=== PATIENT | female | born 1995 | race Caucasian/White ===

== ENCOUNTER 2024-07-03 12:35 | Emergency (ER) | payer BC, SELFPAY ==
--- OUTSIDE RECORDS SUMMARY | 2024-06-06 11:00 | XMS_ITS ---
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 Has not had a cycle in 10 years. Cycle was only present for 1.5yr until it became absent for almost 10 years now. 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 Vital Signs Blood pressure systolic 80 mm Hg 06/07/19 25 Blood pressure diastolic 58 mm Hg 06/06/ 025 Height 65 in 06/06/2024 Weight 68.6 lbs 06/06/2024 BMI 11.41 kg/m2 06/06/2024 Encounters Encounter Location Date Provider Diagnosis [facility] [address] [place] [address] 06/06/2024 Mikayla Roa Malnutrition, unspecified type E46 [...] would recommend she also establish with a supervisor mails to assist with maintaining the (and even [...] would recommend she also establish with a supervisor mails to assist with maintaining the (and even helping achieve ). Will send a referral to [facility] Will have patient return after her labs to discuss further plan of care Mast cell activation syndrome Managed by other physicians Other Today's visit [facility] ed the ongoing management of multiple chronic, interconnected conditions significantly impacting the patient's quality of life and care complexity. Considerable time and cognitive effort were dedicated to addressing these conditions, discussing treatment options, coordinating care, patient counseling, and shared decision-making. 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 2. C/o; Patient [...] secondary to MCAS. This was diagnosed by [facility]. she needs a very strict diet [...] She was being seen by an outside medicare interviewer for her secondary amenorrhea. She had a [...] History: A nemia, Amenorrhea, Jaundice, Hypothyoidism. 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 [...] 2 TIMES A WEEK Transdermal , Taking Bixby Thyroid 60 MG Tablet TAKE 1 TABLET [...] * Images: Billing Information: * Visit Code: 05732 Office Visit, New Pt., Level 4. * Procedure Codes: 42237 BRIEF EMOTIONAL/BEHAV ASSMT. Modifiers: 59 * Sign off status: Completed true * Provider: Howard Roa, DO Date: 0 06/06/2024 Generated for Vibha doran/Stephen/Emiliana on: 0 07/03/2024 01:46 PM CDT History and Physical Notes * HPI [...]
--- OUTSIDE RECORDS SUMMARY | 2024-06-08 05:30 | XMS_ITS ---
Author Organization [facility] Address [address] [place] [address] Care Team Providers Care Pocket Builder Name Role Phone Diana Alcantar Primary Care Provider Kate Arora Unavailable [phone] Euwendy Mikayla Unavailable [phone] Results Component Value Reference Range Notes ESTRADIOL Reviewed date:06/09/2024 08:15:24 AM Interpretation: Performing Lab:[facility] [id number], Jimmy FairlySpttJY[address] Miguel Dutton Notes/Report: 0; 0; 0; 0 ESTRADIOL <15 Reference Range Follicular Phase: 19-144 Mid-Cycle: 64-357 Luteal Phase: 56-214 Postmenopausal: < or = 31 Reference range established on post-pubertal patient population. No pre-pubertal reference range established using this assay. For any patients for whom low Estradiol levels are anticipated (e.g. males, pre-pubertal children and hypogonadal/post-menopausal females), the [facility] Estradiol, Ultrasensitive, LCMSMS assay is recommended (order code 63633). Please note: patients being treated with the drug fulvestrant (Faslodex(R)) have demonstrated significant interference in immunoassay methods for estradiol measurement. The cross reactivity could lead to falsely elevated estradiol test results leading to an inappropriate clinical assessment of estrogen status. ProtoExchange order code 05558-Htycgferd, Ultrasensitive LC/MS/MS demonstrates negligible cross reactivity with fulvestrant. FSH Reviewed date:06/09/2024 08:15:24 AM Interpretation: Performing Lab:[facility] [id number], [facility] Clinic[facility]kiZC[address] Miguel Dutton Notes/Report: 0; 0; 0; 0 FSH <0.7 Reference Range Follicular Phase 2.5-10.2 Mid-cycle Peak 3.1-17.7 Luteal Phase 1.5- 9.1 Postmenopausal 23.0-116.3 LH Reviewed date:06/09/2024 08:15:24 AM Interpretation: Performing Lab:[facility] [id number], [facility] ClinicLoccZC[address] Miguel Dutton Notes/Report: 0; 0; 0; 0 LH <0.2 Reference Range Follicular Phase 1.9-12.5 Mid-Cycle Peak 8.7-76.3 Luteal Phase 0.5-16.9 Postmenopausal 10.0-54.7 PROLACTIN Reviewed date:06/09/2024 08:15:24 AM Interpretation: Performing Lab:[facility] [id number], [facility] Hospital[facility]dswRY[address] Miguel Dutton Notes/Report: 0; 0; 0; 0 PROLACTIN 8.5 Reference Range Females Non- 3.0-30.0 10.0-209.0 Postmenopausal 2.0-20.0 Testosterone, Total (IH) Reviewed date:06/14/2024 04:05:43 PM Interpretation: Performing Lab: Notes/Report: Access 2 ([id number]), Or[facility] - Lab REASON FOR VISIT Hormone Sendout + IH Testo Medications Medication SIG (Take, Route, Frequency, Duration) Notes Start Date End Date Status Lasix Active Estradiol 0.0375 MG/24HR APPLY 1 PATCH T OPICALLY TO THE SKIN 2 TIMES A WEEK Transdermal for 28 Days Active Progesterone Cream Active [place] Thyroid 60 MG TAKE 1 TABLET BY [facility] ON AN EMPTY STOMACH ORALLY ONCE A DAY 90 DAYS Oral for 90 Days Active Encounters Encounter Location Date Provider Diagnosis [facility] [address] [place] [address] [address] [place], [place] [id number] 06/08/2024 Mikayla Roa Amenorrhea, secondar y N91.1 Assessments Encounter Date Diagnosis (ICD Code) Assessment Notes Treatment Notes Treatment Clinical Notes Section Notes 06/08/2024 Amenorrhea, secondary (ICD-10 - N91.1) Plan Of Treatment Next Appt Details Provider Name:Mikayla Roa, 0 09/12/2024 02:00:00 PM, [address] [place], [address], Progress Notes * Jose David FORDEOB:1995 (28 yo F)Acc No.[id number]:06/08/2024 Patient: Madison RUIZ Provider: Howard Roa DO :1995 A ge:28 Y S ex:Female Date:06/08/2024 Address:[address] [place], [place] [id number] Pcp:Diana Alcantar Subjective: * Chief Complaints: * 1 . Hormone Sendout + IH Testo. * Medical History: * Medications: T aking Lasix , Taking Progesterone , Notes to Pharmacist: Cream, Taking Estradiol 0.0375 MG/24HR Patch Twice Weekly APPLY 1 PATCH TOPICALLY TO THE SKIN 2 TIMES A WEEK Transdermal , Taking [place] Thyroid 60 MG Tablet TAKE 1 TABLET [...] 2670 ASSAY OF ESTRADIOL, Modifiers: 90 , 34026 GONADOTROPIN (FSH), Modifiers: 90 , 38385 GONADOTROPIN (LH), Modifiers: 90 , 79934 ASSAY OF PROLACTIN, Modifiers: 90 , 49115 ASSAY OF TOTAL TESTOSTERONE - IH, 77345 VENIPUNCT, ROUTINE* * Images: Billing Information: * Visit Code: * Procedure Codes: 94506 ASSAY OF ESTRADIOL. Modifiers: 90 90666 GONADOTROPIN (FSH). Modifiers: 90 86538 GONADOTROPIN (LH). Modifiers: 90 52535 ASSAY OF PROLACTIN. Modifiers: 90 50016 ASSAY OF TOTAL TESTOSTERONE - IH. 42477 VENIPUNCT, ROUTINE*. * Sign off status: Completed Addendum: * true * Provider: Howard Roa, DO Date: 06/08/2024 Generated for Vibha doran/Farupeshg/eTransmitting on: 07/03/2024 01:46 PM CDT
--- OUTSIDE RECORDS SUMMARY | 2024-06-13 06:15 | XMS_ITS ---
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 Medications Medication SIG (Take, Route, Frequency, Duration) Notes Start Date End Date Status Progesterone Cream Active Estradiol 0.1 MG/24HR 1 patch to skin Tr ansdermal Two times a Week for 90 days 06/13/2024 Active [place] Thyroid 60 MG TAKE 1 TABLET BY [facility] ON AN EMPTY STOMACH ORALLY ONCE A DAY 90 DAYS Oral for 90 Days Active Estradiol 0.0375 MG/24HR APPLY 1 PATCH T OPICALLY TO THE SKIN 2 TIMES A WEEK Transdermal for 28 Days Active Lasix Active Social History Tobacco Use: Social History Observation Description Date Details (start date - stop date) Never Smoker NA - NA Tobacco Control (Standard) Question Answer Notes Tobacco use: Nonsmoker Problems Problem Type SNOMED Code ICD Code Onset Dates Problem Status W/U Status Risk Notes Problem Hypogonadotropic hypogonadism syndrome, 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 Vital Signs Blood pressure systolic 80 mm Hg 06/14/19 25 Blood pressure diastolic 48 mm Hg 025 Height 65 in 06/13/2024 Weight 70.4 lbs 06/13/2024 BMI 11.71 kg/m2 06/13/2024 Encounters Encounter Location Date Provider Diagnosis [facility] [address] [place] [address] 06/13/2024 Mikayla Roa Hypogonadotropic hypogonadism syndrome, female E23.0 ; Secondary amenorrhea N91.1 and Vaginal dryness N89.8 Assessments Encounter Date Diagnosis (ICD Code) Assessment Notes Treatment Notes Treatment Clinical Notes Section Notes 06/13/2024 Hypogonadotropic hypogonadism syndrome, female (ICD-10 - E23.0) Pt currently is on a estradiol patch 0.0375mg 2x/weekly, and topical progesterone. She did not tolerate oral progesterone well which she suspects is secondary to a soy allergy. We discussed the need to be on full dose replacement, which is estradiol 0.1mg 2x/week. This has been sent to her pharmacy. We also reviewed the importance of oral progesterone vs transdermal, and we are able to compound progesterone in olive oil at [facility]. She is excited to try this and we are hopeful this formulation will be OK with her MCAS. Will plan to do estradiol patch continuously, and progesterone 14 days of the month -Estrogen will be particularly important for her bone health. We should repeat this screening in 6 months or so and compare to her prior test -Will have patient follow up in 3 months. Also reviewed that if ANDRIY has a different plan for the patient I would defer management to them 06/13/2024 Secondary amenorrhea (ICD-10 - N91.1) See above plan 06/13/2024 Vaginal dryness (ICD-10 - N89.8) Offered vaginal estrogen or Replens therapy. She would like to hold off on vaginal estrogen for now - we are both hopeful that the patch will provide some improvement in dryness 06/13/2024 Other Today's visit involved the ongoing management of multiple chronic, interconnected conditions significantly impacting the patient's quality of life and care complexity. Considerable time and cognitive effort were dedicated to addressing these conditions, discussing treatment options, coordinating care, patient counseling, and shared decision-making. 30 minutes spent on chart review, in face to face time with patient, documentation of above and coordination of care. Plan Of Treatment Medication Medication Name Sig Start Date Stop Date Notes Estradiol 0.1 MG/24HR 1 patch to skin Tr ansdermal Two times a Week for 90 days 06/13/2024 Treatment Notes Assessment Notes Hypogonadotropic hypogonadis m syndrome, female Pt currently is on a estradiol patch 0.0375mg 2x/weekly, and topical progesterone. She did not tolerate oral progesterone well which she suspects is secondary to a soy allergy. We discussed the need to be on full dose replacement, which is estradiol 0.1mg 2x/week. This has been sent to her pharmacy. We also reviewed the importance of oral progesterone vs transdermal, and we are able to compound progesterone in olive oil at [facility]. She is excited to try this and we are hopeful this formulation will be OK with her MCAS. Will plan to do estradiol patch continuously, and progesterone 14 days of the month -Estrogen will be particularly important for her bone health. We should repeat this screening in 6 months or so and compare to her prior test -Will have patient follow up in 3 months. Also reviewed that if [facility]RIY has a different plan for the patient I would defer management to them Secondary amenorrhea See above plan Vaginal dryness Offered vaginal estr ogen or Replens therapy. She would like to hold off on vaginal estrogen for now - we are both hopeful that the patch will provide some improvement in dryness Other Today's visit involved the ongoing management of multiple chronic, interconnected conditions significantly impacting the patient's quality of life and care complexity. Considerable time and cognitive effort were dedicated to addressing these conditions, discussing treatment options, coordinating care, patient counseling, and shared decision-making. 30 minutes spent on chart review, in face to face time with patient, documentation of above and coordination of care. Next Appt Details Provider Name:Mikayla Roa, 0 09/12/2024 02:00:00 PM, [address] [place], [address], Progress Notes * Jose David FORDEOB:1995 (28 yo F)Acc No.[id number]:06/13/2024 Progress Notes Patient: Howard Madison LOPEZ Provider: Howard Roa DO :1995 A ge:28 Y S ex:Female Date:06/13/2024 Address:[address] Pcp:Diana Alcantar Subjective: * Chief Complaints: * 1 . FU - labs. 2. Lmp 08/2014. 3. Concerns none. 4. 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 * HPI: * General: Madison is here for F/U of amenorrhea. Labs: E <15 FSH <0.7 LH < 0.2 Labs consistent with hypogonadotropic hypogonadism. Suspect secondary to severe malnutrition from MCAS Patient was referred to ANDRIY last week due to desires for fertility. I was happily surprised that she was actually able to schedule an appointment next week. ANDRIY will be a very helpful resource in managing this patients endocrinopathy and fertility desires The patient states she has had bone density testing within the last two years and has been doing weight bearing exercise to help with this (no medications were indicated). She also had Vit D recently tested which is 32 so she has started a Vit D supplement. Pt does also report vaginal dryness causing dyspareunia. * Medical History: A nemia, Amenorrhea, Jaundice, Hypothyoidism. 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 [...] 2 TIMES A WEEK Transdermal , Taking [place] Thyroid 60 MG Tablet TAKE 1 TABLET BY MOUTH ON AN EMPTY STOMACH ORALLY ONCE A DAY 90 DAYS Oral , Medication List reviewed and reconciled with the patient * Allergies: N .K.D.A. Objective: * Vitals: H t: 65 in, Wt:70.4lbs, BP:80/48mm Hg, BMI:11.71Index. * Examination: * General Examination: GENERAL APPEARANCE: i n no acute distress, alert, well hydrated, in no distress. Assessment: * Assessment: 1. S econdary amenorrhea - N91.1 2 . H ypogonadotropic hypogonadism syndrome, female - E23.0 (Primary) 3 . V aginal dryness - N89.8 Plan: * Treatment: 2. S econdary amenorrhea Notes: See above plan 3. V aginal dryness Notes: Offered vaginal estrogen or Replens therapy. She would like to hold off on vaginal estrogen for now - we are both hopeful that the patch will provide some improvement in dryness 4. O thers Notes: Today's visit involved the ongoing management of multiple chronic, interconnected conditions significantly impacting the patient's quality of life and care complexity. Considerable time and cognitive effort were dedicated to addressing these conditions, discussing treatment options, coordinating care, patient counseling, and shared decision-making. 30 minutes spent on chart review, in face to face time with patient, documentation of above and coordination of care. * Preventive Medicine: YOUR PREVENTIVE WELLNESS PLAN: D epression Screening: Screening for depression was last done on: 06/06/2024 * Images: Billing Information: * Visit Code: 24155 Office Visit, Est Pt., Level 4. * Procedure Codes: * Sign off status: Completed true * Provider: Howard Roa DO Date: 06/13/2024 Generated for Vibha doran/Stephen/Emiliana on: 07/03/2024 01:46 PM CDT History and Physical Notes * Examination Category Sub-Category Detail Notes Category Not es *General Examination GENERAL APPEARANCE: in no a cute distress, alert, well hydrated, in no distress
--- OUTSIDE RECORDS SUMMARY | 2024-06-14 09:00 | XMS_ITS | Encounter Summary ---
Author Organization [facility] Address [address] [place] [address] Care Team Providers Care Patternmaker Grader Name Role Phone Juliana Churchill MD Unavailable [phone] Diana Alcantar NP Primary Care Provider Juliana Churchill MD Unavailable Roosevelt Carrasco MD Unavailable [phone] Reason for Visit * Reason Comments Oncology Clinic Visit Anemia Encounter Details Date Type Department Care Team (Late st Contact Info) Description 06/14/2024 9:00 AM CDT Oncology Visit [facility] [address] [facility] [address] [place] [address] Juliana Churchill MD [address] [facility] [place] [id number] Anemia in other chronic diseases classified elsewhere (Primary Dx); Neutropenia, unspecified type; Thrombocytopenia Social History Tobacco Use Types Packs/Day Years Used Date Smoking Tobacco: Never Smokeless Tobacco: Never Alcohol Use Standard Drinks/Week Comments No 0 (1 standard drink = 0.6 oz pur e alcohol) PHQ-2 Answer Date Recorded PHQ-2 Score 0 06/14/2024 Adolescent Education Answer Date Record ed Getting School Help Needed Not on file 11/08 Comments No Sex and Gender Information Value Date Recorded Sex Assigned at Not on file Legal Sex Female 3:31 AM [employer] Gender Identity Not on file Sexual Orientation Not on file documented as of this encounter Last Filed Vital Signs Vital Sign Reading Time Taken Comments Blood Pressure 102/57 06/14/2024 8:44 AM CDT Pulse 63 06/14/2024 8:44 AM CDT Temperature 36.9 C (98.4 F) 06/14/2024 8:44 AM CDT Respiratory Rate 16 06/14/2024 8:44 AM CDT Oxygen Saturation 100% 06/14/2024 8:44 AM CDT Inhaled Oxygen Concentration - - Weight 31.2 kg (68 lb 12.8 oz) 06/14/2024 8:44 A M CDT Height 165.1 cm (5' 5) 06/14/2024 8:44 AM CDT Body Mass Index 11.45 06/14/2024 8:44 AM CDT documented in this encounter Progress Notes * Slick Peraza, VALE - 06/14/2024 9:00 AM CDT Oncology Rooming Note June 14, 2024 9:09 AM Madison Forde is a 28 year old female who presents for: Chief Complaint Patient presents with Oncology Clinic Visit Initial Vitals: BP 102/57 (Patient Position: Sitting) Pulse 63 Temp 98.4 ??F (36.9 ??C) (Oral) Resp 16 Ht 1.651 m (5' 5) Wt 31.2 kg (68 lb 12.8 oz) SpO2 100% BMI 11.45 kg/m?? Estimatedbody mass index is 11.45 kg/m?? as calculated from the following: Height as of this encounter: 1.651 m (5' 5). Weight as of this encounter: 31.2 kg (68 lb 12.8 oz). Body surface area is 1.2 meters squared. Data Unavailable Comment: 1-5 total body No LMP recorded. (Menstrual status: UNKNOWN). Allergies reviewed: Yes Medications reviewed: Yes Medications: Medication refills not needed today. Pharmacy name entered into EPIC: [id number] IN [facility] - [place], [place] - [address] [id number] - [place] [address] [id number] - [place], [place] [address] [facility] [address] [facility][id number] [place], [place] - [address] AT [place] [address] & [facility] Frailty Screening: Is the patient here for a new oncology consult visit in cancer care? 2. No PHQ9: Did this patient require a PHQ9?: No Clinical concerns:Anemia Slick Peraza LPN * Juliana Churchill MD - 06/14/2024 9:00 AM CDT [facility] Hematology and Oncology Progress Note Patient: Madison Forde Date of Service: June 14, 2024 Reason for Visit Chief Complaint Patient presents with Oncology Clinic Visit Anemia Assessment and Plan Cancer Staging No matching staging information was found for the patient. ECOG Performance 0 - Independent Pain #. Mild neutropenia, persistent #. Mild macrocytic anemia, resolved #. Mild thrombocytopenia, resolved #. History of mast cell activation syndrome I reviewed her most recent labs completed about a month ago. - The current blood test results indicate that there is no evidence of a blood disease, as the hemoglobin and platelet counts have normalized though she has mild persistent macrocytosis with MCV of 105. - The white cell count is slightly low at 2.2, with a neutrophil count of 0.8, but this is not considered dangerously low. - The vitamin B12 and folate levels are within normal ranges, and there is no concern for toxicity.Iron study showed adequate iron with iron saturation 42% and ferritin 105. - The overall assessment suggests that the current condition is stable, and there is no indication of needing bone marrow biopsy at this point. Plan - Monitor blood counts annually to ensure stability, particularly the neutrophil count. - Establish care with a primary care provider to maintain regular health monitoring. - Consult a workers' compensation claims supervisor if there are any concerns or questions regarding blood counts. She is encouraged to call me with any concerns related to her blood counts. Encounter Diagnoses: Problem List Items Addressed This Visit Anemia - Primary Other Visit Diagnoses Neutropenia, unspecified type Thrombocytopenia CC: Diana Alcantar, BARREL RAISER HELPER History of Present Illness Ms. Madison Forde presented today accompanied by her for follow-up iron deficiency anemia and pancytopenia. Madison reports that not much has changed since her last visit a year ago regarding her gastrointestinal issues. She is currently working on stabilizing her condition. She mentions that her eating habits and nutritional intake are satisfactory, with no significant changes in how much she can eat orher caloric intake. Madison notes that salcido are challenging for her, possibly due to mood changes or mast cell reactivation related to the weather. She described full body pain rated 1-5 out of 10. She previously lived in [place], which she suggests might have contributed to some of her health improvements. She does not report any significant changes in her condition over the past month. Madison is not taking any vitamin B12 supplements. She has not experienced frequent infections such as pneumonia or true sinus infections, which could be concerning given her slightly low white cell count. She expresses satisfaction with her current blood work results and does not plan to recheck labs unless there are changes in her condition. Review of systems Apart from describing in HPI, the remainder of comprehensive ROS was negative. Past History Past Medical History: Diagnosis Date Allergic state Idiopathic mast cell activation syndrome Severe malnutrition Strep throat Past Surgical History: Procedure Laterality Date IR NG TUBE PLACEMENT REQ RAD & FLUORO 09/09/2017 IR PICC PLACEMENT > 5 YRS OF AGE 1112/19/2017 PICC INSERTION Right 06/17/2016 5fr DL BioFlo PICC, 34cm (1cm external) in the R basilic vein w/ tip in the SVC RA junction. PICC INSERTION Right 08/12/2016 5f DL BioFlo PICC, 34cm (1cm external) in the R lateral brachial vein w/ tip in the low SVC. TONSILLECTOMY & ADENOIDECTOMY age 12 Physical Exam BP 102/57 (Patient Position: Sitting) Pulse 63 Temp 98.4 ??F (36.9 ??C) (Oral) Resp 16 Ht 1.651 m (5' 5) Wt 31.2 kg (68 lb 12.8 oz) SpO2 100% BMI 11.45 kg/m?? General: alert, awake, not in acute distress, Introvale. HEENT: Head: Normal, normocephalic, atraumatic. Eye: Normal external eye, conjunctiva, lids cornea, CATHIE. Nose: Normal external nose, mucus membranes and septum. Extremities: normal strength, tone, and muscle mass Skin: normal. no rash or abnormalities CARBONATING STONE CLEANER: non focal. Lab Results No results found for this or any previous visit (from the past 240 hours). Imaging No results found. The longitudinal plan of care for the diagnosis(es)/condition(s) as documented were addressed during this visit. Due to the added complexity in care, I will continue to support Madison in the subsequent management and with ongoing continuity of care. 30 minutes spent by me on the date of the encounter doing chart review, history and exam, documentation and further activities as noted above. Consent was obtained from the patient to use an AI documentation tool in the creation of this note. Signed by: Juliana Churchill MD documented in this encounter Plan of Treatment Not on file documented as of this encounter Visit Diagnoses Diagnosis Anemia in other chronic diseases classified elsewhere- Primary Neutropenia, unspecified type Thrombocytopenia Thrombocytopenia, unspecified documented in this encounter Care Teams Patternmaker Grader Relationship Specialty Start Date End Date Diana Alcantar NP [facility] [address] [place] [address] PCP - General 06/18/23 Juliana Churchill MD [address] [place] [address] [place] [id number] Hematology 05/20/23 Juliana Churchill MD [address] [place] [address] [place] [id number] Assigned Cancer Care Provider 06/30/23 Roosevelt Carrasco MD [address] [facility] [address] [place], [place] [address] Otolaryngology 07/20/23 documented as of this encounter
--- OUTSIDE RECORDS SUMMARY | 2024-06-25 16:08 | XMS_ITS | Encounter Summary ---
Author Organization [facility] Address [address] [place] [id number] Care Team Providers Care Luggage Liner Name Role Phone Juliana Churchill MD Unavailable [phone] Diana Alcantar NP Primary Care Provider Juliana Churchill MD Unavailable [phone] Roosevelt Carrasco MD Unavailable [phone] Reason for Visit * Reason Comments Chest Pain Encounter Details Date Type Department Care Team (Late st Contact Info) Description 06/25/2024 4:08 PM CDT - 06/25/2024 7:55 PM CDT Emergency [facility] Emergency Dept [address] [place] [address] Umair Ruiz MD [facility] [address] [place] [address] Atypical chest pain; Hypokalemia; Nausea and vomiting, unspecified vomiting type Discharge Disposition: Home or Self Care Social History Tobacco Use Types Packs/Day Years [...] on file Legal Sex 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 Gender Identity Not on file Sexual Orientation Not on file documented as of this encounter Last Filed Vital Signs Vital Sign Reading Time Taken Comments Blood Pressure 97/62 06/25/2024 7:50 PM CDT Pulse 44 06/25/2024 7:50 PM CDT Temperature 37.3 C (99.1 F) 06/25/2024 3:49 PM CDT Respiratory Rate 18 06/25/2024 3:49 PM CDT Oxygen Saturation 100% 06/25/2024 7:50 PM CDT Inhaled Oxygen Concentration - - Weight 31.3 kg (69 lb 0.1 oz) 06/25/2024 3:49 PM CDT Height 165.1 cm (5' 5) 06/25/2024 3:49 PM CDT Body Mass Index 11.48 06/25/2024 3:49 PM CDT documented in this encounter Discharge Instructions * Discharge Instructions* Umair Ruiz MD - 06/25/2024 7:19 PM CDT Discharge Instructions Chest Pain You have been seen today for chest pain or discomfort. At this time, your provider has found no signs that your chest pain is due to a serious or life- threatening condition, (or you have declined more testing and/or admission to the hospital). However, sometimes there is a serious problem that doesnot show up right away. Your evaluation today may not be complete and you may need further testing and evaluation. Generally, every Emergency Department visit should have a follow-up clinic visit with either a primary or a specialty clinic/provider. Please follow-up as instructed by your emergency provider today. Return to the Emergency Department if: Your chest pain changes, gets worse, starts to happen more often, or comes with less activity. You are newly short of breath. You get very weak or tired. You pass out or faint. You have any new symptoms, like fever, cough, numb legs, or you cough up blood. You have anything else that worries you. Until you follow-up with your regular provider, please do the following: Take one aspirin daily unless you have an allergy or are told not to by your provider. If a stress test appointment has been made, go to the appointment. If you have questions, contact your regular provider. Follow-up with your regular provider/clinic as directed; this is very important. If you were given a prescription for medicine here today, be sure to read all of the information (including the package insert) that comes with your prescription. This will include important information about the medicine, its side effects, and any warnings that you need to know about. The pharmacist who fills the prescription can provide more information and answer questions you may have about the medicine. If you have questions or concerns that the pharmacist cannot address, please call or return to the Emergency Department. Remember that you can always come back to the Emergency Department if you are not able to see your regular provider in the amount of time listed above, if you get any new symptoms, or if there is anything that worries you. * Attachments The following attachments cannot be sent through Care Everywhere. * Hypokalemia (Slovenian) * Nausea and Vomiting (Slovenian) documented in this encounter Medications at Time of Discharge ondansetron (ZOFRAN ODT) 4 MG ODT tab Take 1 tablet (4 mg) by mouth every 6 hours as needed for nausea or vomiting. 12 tablet 06/25/2024 potassium chloride cherry ER (KLOR-CON M20) 20 MEQ CR tablet Take 2 tablets (40 mEq) by mouth daily. 8 tablet 06/25/2024 ARMOUR THYROID 30 MG tablet 11/13/2022 EPINEPHrine 0.3 MG/0.3ML injectionIndicat ions:Idiopathic mast cell activation syndrome Inject 0.3 mLs (0.3 mg) into the muscle as needed for anaphylaxis 0.6 mL 3 07/06/2016 documented as of this encounter ED Notes * Clair Cadet RN - 06/25/2024 7:21 PM CDT Bed: IN06 Expected date: Expected time: Means of arrival: Comments: 3rd Triage Nurse * Umair Ruiz MD - 06/25/2024 4:08 PM CDT Emergency Department Note History of Present Illness Chief Complaint Chest Pain MIRNA Forde is a 28 year old female here for evaluation of chest pain. The patient came to the ED from urgent care where she was seen for both nausea and vomiting as well as chest pain. She reports onset of intermittent shortness of breath and left-sided chest tightness 1 week ago. She describes her chest tightness as her left chest is shrinking. The chest tightness is accompanied by mild left chest pain. 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 The chest tightness also gets worse while she is drinking fluids. She is a pretty active person and goes for 20-25 minute walks everyday, but the tightness does not come during the walk or right after. The pain does not move anywhere. When she was seen at , they also noticed heart rate irregularities. She denies sweating that occurs alongside the chest pain. She has never had these symptoms before. She also reports chronic nausea and vomiting that started a long time ago. She has recently noticedweight loss, which is part of the reason she went to the urgent care. She reports that her PCP is aware of the issues and suspects it has something to do with allergies. She is not taking any medication for the nausea and vomiting. She also reports mild generalized abdominal pain that has been going on for a long time. She denies sweating, fever, and unilateral symptoms other than the chest pain.She has chronic edema, but denies any recent changes. She does not have history of blood clots. Shedenies history of smoking, other heart issues, diabetes, hypertension, hyperlipidemia, and family history of cardiac disease. She has not concern for currently. She started estrogen patchesone week ago. Independent Historian None Review of External Notes None Past Medical History Medical History and Problem List Idiopathic mast cell activation syndrome Anorexia nervosa Hypothyroid Cachexia Liver failure Central line-associated bloodstream infection Pressure injury of contiguous region involving right buttock Medications Estradiol patch Surgical History Tonsillectomy and adenoidectomy Physical Exam Patient Vitals for the past 24 hrs: BP Temp Temp src Pulse Resp SpO2 Height Weight 06/25/24 1950 97/62 -- -- (!) 44 -- 100 % -- -- 06/25/24 1549 100/69 99.1 ??F (37.3 ??C) Temporal 56 18 100 % 1.651 m (5' 5) 31.3 kg (69 lb 0.1 oz) Physical Exam General: Alert, no acute distress; cachectic appearing. HEENT: Moist mucous membranes. Conjunctiva normal. CV: Bradycardic, regular rhythm, no m/r/g, skin warm and well perfused Pulm: CTAB, no wheezes/ronchi/rales. No acute distress, breathing comfortably GI: Soft, nontender, nondistended. No rebound or guarding. MSK: Moving all extremities. No focal areas of edema, erythema Skin: WWP, no rashes, no lower extremity edema, skin color normal, no diaphoresis Psych: Well-appearing, normal affect, regular speech Diagnostics Lab Results Labs Ordered and Resulted from Time of ED Arrival to Time of ED Departure COMPREHENSIVE METABOLIC PANEL - Abnormal Result Value Sodium 142 Potassium 2.8 (*) Carbon Dioxide (CO2) 29 Anion Gap 10 Urea Nitrogen 2.7 (*) Creatinine 0.90 GFR Estimate 89 Calcium 8.8 Chloride 103 Glucose 82 Alkaline Phosphatase 53 AST 30 ALT 38 Protein Total 5.3 (*) Albumin 3.7 Bilirubin Total 0.4 CBC WITH PLATELETS AND DIFFERENTIAL - Abnormal WBC Count 2.7 (*) RBC Count 3.52 (*) Hemoglobin 11.9 Hematocrit 34.1 (*) MCV 97 MCH 33.8 (*) MCHC 34.9 RDW 12.7 Platelet Count 246 % Neutrophils 42 % Lymphocytes 47 % Monocytes 9 % Eosinophils 1 % Basophils 1 % Immature Granulocytes 0 NRBCs per 100 WBC 0 Absolute Neutrophils 1.2 (*) Absolute Lymphocytes 1.3 Absolute Monocytes 0.2 Absolute Eosinophils 0.0 Absolute Basophils 0.0 Absolute Immature Granulocytes 0.0 Absolute NRBCs 0.0 TROPONIN T, HIGH SENSITIVITY - Normal Troponin T, High Sensitivity 10 LIPASE - Normal Lipase 32 D DIMER QUANTITATIVE - Normal D-Dimer Quantitative <0.27 MAGNESIUM - Normal Magnesium 2.3 TROPONIN T, HIGH SENSITIVITY - Normal Troponin T, High Sensitivity 8 Imaging Chest XR, PA & LAT Final Result IMPRESSION: PA and lateral views of the chest were obtained. Cardiomediastinal silhouette is withinnormal limits. No suspicious focal pulmonary opacities. No significant pleural effusion or pneumothorax. Few gas-distended bowel loops in the visualized left upper quadrant. EKG ECG results from 06/25/24 EKG 12-lead, tracing only Value Systolic Blood Pressure Diastolic Blood Pressure Ventricular Rate 49 Atrial Rate 49 AL Interval 116 QRS Duration 92 QT 466 QTc 420 P Lockhart 78 R AXIS 100 T Lockhart 68 Interpretation ECG Sinus bradycardia Rightward axis Nonspecific ST and T wave abnormality Abnormal ECG No significant change from previous EKG on 01/15/21 Read by me at 1600 Independent Interpretation CXR: No pneumothorax, infiltrate, pleural effusion, pulmonary edema, cardiomegaly, or mediastinal widening. ED Course Medications Administered Medications ibuprofen (ADVIL/MOTRIN) tablet 600 mg (600 mg Oral $Given 06/25/24 1637) sodium chloride 0.9% BOLUS 1,000 mL (0 mLs Intravenous Stopped 06/25/24 1855) potassium chloride (KLOR-CON) Packet 40 mEq (40 mEq Oral Not Given 06/25/24 1931) potassium chloride cherry ER (KLOR-CON M20) CR tablet 40 mEq (40 mEq Oral $Given 06/25/24 1950) Procedures Procedures Discussion of Management None ED Course ED Course as of 06/26/24 0026 TueJune 25, 2024 1605 I obtained history and examined the patient as noted above. 194 I obtained history and examined the patient as noted above. Additional Documentation None Medical Decision Making / Diagnosis [facility] Diagnoses: None MIPS None MDM [place] Mary Forde is a 28 year old female with reported history of idiopathic mast cell activation syndrome, anorexia presenting to the emergency department for evaluation of chest pain. Patient reports ongoing nausea/vomiting that is. Today, she was seen at urgent care and referred to the emergency department given complaints of chest pain. See above for the details in the HPI and exam. She isnoted to be bradycardic, afebrile and hemodynamically stable. She does appear cachectic but overallwell appearing which seems consistent with her prior evaluations. She does have a history of bradycardia and her EKG shows sinus bradycardia without any acute ischemic appearing changes or signs of malignant dysrhythmia or worrisome interval abnormalities or pericarditis. High- sensitivity troponin and delta troponin are normal making ACS unlikely. Furthermore, patient's heart score is low. She islow risk for PE, D-dimer is negative making VTE unlikely. The rest of her basic lab studies show mild hypokalemia which was orally replaced, otherwise normal magnesium; slight leukopenia which seems to be stable from previous evaluations, nonspecific. Chest x-ray obtained shows no acute abnormalities. Doubt aortic dissection based on history and exam. Unclear cause for patient's chest pain but given her overall reassuring workup here, with reasonable clinical certainty I do feel that she is safe to discharge home to follow-up with her primary care doctor regarding her ER visit today and she is comfortable with this plan. She will be discharged with antiemetics, potassium supplementation. Recommend follow-up with PCP next week to repeat chemistries. Discussed the signs/symptoms that should prompt urgent return to the emergency department and she expressed understanding. All questions were answered prior to discharge. Disposition The patient was discharged. Diagnosis ICD-10-CM 1. Atypical chest pain R07.89 2. Hypokalemia E87.6 3. Nausea and vomiting, unspecified vomiting type R11.2 Discharge Medications Discharge Medication List as of 06/25/2024 7:51 PM START taking these medications Details ondansetron (ZOFRAN ODT) 4 MG ODT tab Take 1 tablet (4 mg) by mouth every 6 hours as needed for nausea or vomiting., Disp-12 tablet, R-0, Local Print potassium chloride cherry ER (KLOR-CON M20) 20 MEQ CR tablet Take 2 tablets (40 mEq) by mouth daily.,Disp-8 tablet, R-0, Local Print Scribe Disclosure: Harry Hankins, am serving as a scribe at 6:13 PM on 06/25/2024 to document services personally performed by Umair Ruiz MD based on my observations and the provider's statements to me. Umair Ruiz MD 06/26/24 0026 * Dixie Riley RN - 06/25/2024 3:51 PM CDT Pt was seen in clinic today and sent to the ED. Pt states that she has had n/v for the past month and has some chest tightness. Pt had an EKG at the clinic that was abnormal but pt is unsure why. Shestates it was low and when he listened it was not normal he heard extra beats. Triage Assessment (Adult) Row Name 06/25/24 1551 Triage Assessment Airway WDL WDL Respiratory WDL Respiratory WDL WDL Cardiac WDL Cardiac WDL X;chest pain documented in this encounter Plan of Treatment Not on file documented as of this encounter Procedures Procedure Name Priority Date/Time Associated Diagnosis Comments TROPONIN T, HIGH SENSITIVITY STAT 06/25/2024 6:22 PM CDT XR CHEST 2 VIEWS STAT 06/25/2024 5:32 PM CDT EXTRA TUBE STAT 06/25/2024 4:30 PM CDT EXTRA RED TOP TUBE STAT 06/25/2024 4: 30 PM CDT CBC WITH PLATELETS AND DIFFERENTIAL STAT 06/25/2024 4:30 PM CDT TROPONIN T, HIGH SENSITIVITY STAT 06/25/2024 4:30 PM CDT CBC WITH PLATELETS & DIFFERENTIAL STAT 06/25/2024 4:30 PM CDT MAGNESIUM STAT 06/25/2024 4:30 PM CDT LIPASE STAT 06/25/2024 4:30 PM CDT D DIMER QUANTITATIVE STAT 06/25/2024 4:30 PM CDT COMPREHENSIVE METABOLIC PANEL STAT 06/25/2024 4:30 PM CDT EKG 12-LEAD, TRACING ONLY STAT 06/25/2024 3:57 PM CDT documented in this encounter Results * Troponin T, High Sensitivity (06/25/2024 6:22 PM CDT) [facility] Troponin T, High Sensitivity 8 <=14 ng/L 06/25/2024 7:10 PM CDT LABORATORY Comment: Either a High Sensitivity Troponin T baseline (0 hours) value = 100 ng/L, or an increase in High Sensitivity Troponin T = 7 ng/L at 2 hours compared to 0 hours (2-0 hours), suggests myocardial injury, and urgent clinical attention is required. If the 2-0 hours increase is <7 ng/L, a High Sensitivity Troponin T result above gender-specific reference ranges warrants further evaluation. Recommendations for further evaluation include correlation with clinical decision-making tool (e.g., HEART), a 3rd High Sensitivity Troponin T test 2 hours after the 2nd (a 20% change from baseline would represent concern), admission for observation, close PCC/cardiology follow-up, or urgent outpatient provocative testing. Blood STRUCTURE OF RIGHT UPPER LIMB / Unknown Venipuncture / Unknown 06/25/2024 6:22 PM CDT 06/25/2024 6:40 PM CDT Umair Ruiz MD LAB - BLOOD ORDERABLES F inal Result [facility] Acute Care Lab [address] Lab (1st floor, no room number) [place] [address], [facility] * Chest XR, PA & LAT (06/25/2024 5:32 PM CDT) Anatomical Region Laterality Modality Chest Computed Radiogr aphy 06/25/2024 5:32 PM CDT Impressions 06/25/2024 6:23 PM CDT IMPRESSION: PA and lateral views of the chest were obtained. Cardiomediastinal silhouette is within normal limits. No suspicious focal pulmonary opacities. No significant pleural effusion or pneumothorax. Few gas-distended bowel loops in the visualized left upper quadrant. Narrative 06/25/2024 6:23 PM CDT EXAM: XR CHEST 2 VIEWS LOCATION: [facility] DATE/TIME: 06/25/2024 5:32 PM CDT INDICATION: Chest pain. COMPARISON: None available. Procedure Note Hoda Valero MD - 06/25/2024 EXAM: XR CHEST 2 VIEWS LOCATION: [facility] DATE/TIME: 06/25/2024 5:32 PM CDT INDICATION: Chest pain. COMPARISON: None available. IMPRESSION: PA and lateral views of the chest were obtained.Cardiomediastinal silhouette is within normal limits. No suspicious focalpulmonary opacities. No significant pleural effusion or pneumothorax. Fewgas-distended bowel loops in the visualized left upper quadrant. Umair Ruiz MD IMG DIAGNOSTIC IMAGING O RDERABLES Final Result * (ABNORMAL) CBC with platelets and differential (06/25/2024 4:30 PM CDT) WBC Count 2.7(L) 4.0 - 11.0 10e3/uL 06/25/2024 4:44 PM CDT [facility] RBC Count 3.52(L) 3.80 - 5.20 10e6/uL 06/25/2024 4:44 PM CDT [facility] Hemoglobin 11.9 11.7 - 15.7 g/dL 06/25/2024 4:44 PM CDT [facility] Hematocrit 34.1(L) 35.0 - 47.0 % 06/25/2024 4:44 PM CDT [facility] MCV 97 78 - 100 fL 06/25/2024 4:44 PM CDT [facility] MCH 33.8(H) 26.5 - 33.0 pg 06/25/2024 4:44 PM CDT [facility] MCHC 34.9 31.5 - 36.5 g/dL 06/25/2024 4:44 PM CDT [facility] RDW 12.7 10.0 - 15.0 % 06/25/2024 4:44 PM CDT [facility] Platelet Count 246 150 - 450 10e3/uL 06/25/2024 4:44 PM CDT [facility] % Neutrophils 42 % 06/25/2024 4:44 PM CDT [facility] % Lymphocytes 47 % 06/25/2024 4:44 PM CDT [facility] % Monocytes 9 % 06/25/2024 4:44 PM CDT [facility] % Eosinophils 1 % 06/25/2024 4:44 PM CDT [facility] % Basophils 1 % 06/25/2024 4:44 PM CDT [facility] % Immature Granulocytes 0 % 06/25/2024 4:44 PM CDT [facility] NRBCs per 100 WBC 0 <1 /100 025 4:44 PM CDT [facility] Absolute Neutrophils 1.2(L) 1.6 - 8.3 10e3/uL 06/25/2024 4:44 PM CDT [facility] Absolute Lymphocytes 1.3 0.8 - 5.3 10e3/uL 06/25/2024 4:44 PM CDT [facility] Absolute Monocytes 0.2 0.0 - 1.3 10e3/uL 06/25/2024 4:44 PM CDT [facility] Absolute Eosinophils 0.0 0.0 - 0.7 10e3/uL 06/25/2024 4:44 PM CDT [facility] Absolute Basophils 0.0 0.0 - 0.2 10e3/uL 06/25/2024 4:44 PM CDT [facility] Absolute Immature Granulocytes 0.0 <=0.4 10e3/uL 06/25/2024 4:44 PM CDT [facility] Absolute NRBCs 0.0 10e3/uL 06/25/2024 4:44 PM CDT [facility] Blood BLOOD SPECIMEN / Unknown Venipuncture / Unknown 06/25/2024 4:30 PM CDT 06/25/2024 4:38 PM CDT Umair Ruiz MD LAB - BLOOD ORDERABLES F inal Result [facility] Lab [address] Lab (1st floor, no room number) [place] [address], [facility] * Extra Red Top Tube (06/25/2024 4:30 PM CDT) Pathologist [facility] Hold Specimen JIC 06/25/2024 5:46 PM CDT [facility] Blood STRUCTURE OF LEFT UPPER LIMB / Unknown Venipuncture / Unknown 06/25/2024 4:30 PM CDT 06/25/2024 4:38 PM CDT Umair Ruiz MD LAB - BLOOD ORDERABLES F inal Result [facility] Lab [address] Lab (1st floor, no room number) [place] [address] * Magnesium (06/25/2024 4:30 PM CDT) [facility] Magnesium 2.3 1.7 - 2.3 mg/dL 06/25/2024 5:04 PM CDT [facility] Blood BLOOD SPECIMEN / Unknown Venipuncture / Unknown 06/25/2024 4:30 PM CDT 06/25/2024 4:38 PM CDT Umair Ruiz MD LAB - BLOOD ORDERABLES F inal Result [facility] Lab [address] Lab (1st floor, no room number) [place] [phone] [place] [address] * D dimer quantitative (06/25/2024 4:30 PM CDT) [facility] D-Dimer Quantitative <0.27 0.00 - 0.50 ug/mL FEU 06/25/2024 4:57 PM CDT [facility] Blood BLOOD SPECIMEN / Unknown Venipuncture / Unknown 06/25/2024 4:30 PM CDT 06/25/2024 4:38 PM CDT Narrative [facility] - 06/25/2024 4:57 PM CDT This D-dimer assay is intended for use in conjunction with a clinical pretest probability assessment model to exclude pulmonary embolism (PE) and deep venous thrombosis (DVT) in outpatients suspected of PE or DVT. The cut-off value is 0.50 ug/mL FEU. Umair Ruiz MD LAB - BLOOD ORDERABLES F inal Result [facility] [address] Lab (1st floor, no room number) [place] [id number] * Lipase (06/25/2024 4:30 PM CDT) Lipase 32 13 - 60 U/L 06/25/2024 5:04 PM CDT LABORATORY Blood BLOOD SPECIMEN / Unknown Venipuncture / Unknown 06/25/2024 4:30 PM CDT 06/25/2024 4:38 PM CDT Umair Ruiz MD LAB - BLOOD ORDERABLES F inal Result Performing Organization Address City/[facility]/ZIP Co de Phone Number [facility] [address] Lab (1st floor, no room number) [place] [phone] * (ABNORMAL) Comprehensive metabolic panel (06/25/2024 4:30 PM CDT) Sodium 142 135 - 145 mmol/L 06/25/2024 5:04 PM CDT LABORATORY Potassium 2.8(L) 3.4 - 5.3 mmol/L 06/25/2024 5:04 PM CDT LABORATORY Carbon Dioxide (CO2) 29 22 - 29 mmol/L 06/25/2024 5:04 PM CDT LABORATORY Anion Gap 10 7 - 15 mmol/L 06/25/2024 5:04 PM CDT [facility] Urea Nitrogen 2.7(L) 6.0 - 20.0 mg/dL 06/25/2024 5:04 PM CDT LABORATORY Creatinine 0.90 0.51 - 0.95 mg/dL 06/25/2024 5:04 PM CDT LABORATORY GFR Estimate 89 >60 mL/min/1.7 3m2 06/25/2024 5:04 PM CDT [facility] Comment:eGFR calculated usin g 1 CKD-EPI equation. Calcium 8.8 8.8 - 10.4 mg/dL 06/25/2024 5:04 PM CDT LABORATORY Chloride 103 98 - 107 mmol/L 06/25/2024 5:04 PM CDT LABORATORY Glucose 82 70 - 99 mg/dL 06/25/2024 5:04 PM CDT [facility] Alkaline Phosphatase 53 40 - 150 U/L 06/25/2024 5:04 PM CDT [facility] AST 30 0 - 45 U/L 06/25/2024 5:04 PM CDT [facility] ALT 38 0 - 50 U/L 06/25/2024 5:04 PM CDT [facility] Protein Total 5.3(L) 6.4 - 8.3 g/dL 06/25/2024 5:04 PM CDT LABORATORY Albumin 3.7 3.5 - 5.2 g/dL 06/25/2024 5:04 PM CDT LABORATORY Bilirubin Total 0.4 <=1.2 mg/dL 06/25/2024 5:04 PM CDT LABORATORY Blood BLOOD SPECIMEN / Unknown Venipuncture / Unknown 06/25/2024 4:30 PM CDT 06/25/2024 4:38 PM CDT Umair Ruiz MD LAB - BLOOD ORDERABLES F inal Result LABORATORY [facility] [address] [facility] Lab (1st floor, no room number) [place] [address], [facility] * Troponin T, High Sensitivity (06/25/2024 4:30 PM CDT) [facility] Troponin T, High Sensitivity 10 <=14 ng/L 06/25/2024 5:04 PM CDT [facility] Comment: Either a High Sensitivity Troponin T baseline (0 hours) value = 100 ng/L, or an increase in High Sensitivity Troponin T = 7 ng/L at 2 hours compared to 0 hours (2-0 hours), suggests myocardial injury, and urgent clinical attention is required. If the 2-0 hours increase is <7 ng/L, a High Sensitivity Troponin T result above gender-specific reference ranges warrants further evaluation. Recommendations for further evaluation include correlation with clinical decision-making tool (e.g., HEART), a 3rd High Sensitivity Troponin T test 2 hours after the 2nd (a 20% change from baseline would represent concern), admission for observation, close PCC/cardiology follow-up, or urgent outpatient provocative testing. Blood BLOOD SPECIMEN / Unknown Venipuncture / Unknown 06/25/2024 4:30 PM CDT 06/25/2024 4:38 PM CDT Umair Ruiz MD LAB - BLOOD ORDERABLES F inal Result [facility] [address] [facility] Lab (1st floor, no room number) [place] [address] * EKG 12-lead, tracing only (06/25/2024 3:57 PM CDT) Systolic Blood Pressure mmHg RADIOLOGY RESULTS Diastolic Blood Pressure mmHg RADIOLOGY RESULTS Ventricular Rate 49 BPM RAD IOLOGY RESULTS Atrial Rate 49 BPM RADIOLOG Y RESULTS AL Interval 116 ms RADIOLOG Y RESULTS QRS Duration 92 ms RADIOLO GY RESULTS QT 466 ms RADIOLOGY RESULTS QTc 420 ms RADIOLOGY RESULTS P Lockhart 78 degrees RADIOLOGY RESULTS R AXIS 100 degrees RADIOLOGY RESULTS T Lockhart 68 degrees RADIOLOGY RESULTS Interpretation ECG Sinus bradycardia Rightward axis Nonspecific ST and T wave abnormality Abnormal ECG When compared with ECG of 08-Aug-2016 09:13, Vent. rate has decreased by 27 bpm T wave inversion more evident in Anterior leads Confirmed by - EMERGENCY ROOM, PHYSICIAN ([id number]), greeting card editor BALDO FLORES ([id number]) on 06/26/2024 7:04:39 AM RADIOLOGY RESULTS 06/25/2024 3:57 PM CDT 06/26/2024 7:04 AM CDT Umair Ruiz MD ECG ORDERABLES Edited R esult - Final RADIOLOGY RESULTS documented in this encounter Visit Diagnoses Diagnosis Atypical chest pain Other chest pain Hypokalemia Hypopotassemia Nausea and vomiting, unspecified vomiting type documented in this encounter Administered Medications Inactive Administered Medications - up to 3 most recent administrations Medication Order MAR Action Action Date Dose Rate Site ibuprofen (ADVIL/MOTRIN) tablet 600 mg 600 mg (19.2 mg/kg), Oral, ONCE, On Tue06/25/24 at 1625, For 1 dose, Give with food. $Given 06/25/2024 4:37 PM CDT 600 mg ondansetron (ZOFRAN) injection 4 mg 4 mg (0.128 mg/kg), Intravenous, EVERY 15 MIN PRN, nausea, up to three doses, Administer over 2-5 Minutes, Starting on Tue06/25/24 at 1621 $Given 06/25/2024 4:40 PM CDT 4 mg potassium chloride cherry ER (KLOR-CON M20) CR tablet 40 mEq 40 mEq (1.28 mEq/kg), Oral, ONCE, On Tue06/25/24 at 1950, For 1 dose, DO NOT CRUSH $Given 06/25/2024 7:50 PM CDT 40 mEq sodium chloride 0.9% BOLUS 1,000 mL Intravenous, 1,000 mL, ONCE, at 1,000 mL/hr, Administer over 1 Hours, On Tue06/25/24 at 1625, For 1 dose $New Bag 06/25/2024 4:40 PM CDT 1,000 mLs 1000 mL/hr documented in this encounter Active and Recently Administered Medications Times are shown in CDT. Scheduled Medication Order 06/23/2024 06/24/2024 06/25/2024 ibuprofen (ADVIL/MOTRIN) tablet 600 mg (COMPLETED) 600 mg (19.2 mg/kg), Oral, ONCE, On Tue06/25/24 at 1625, For 1 dose, Give with food. 1637 ($Given - Provi yomi: Martha Martins RN) potassium chloride cherry ER (KLOR-CON M20) CR tablet 40 mEq (COMPLETED) 40 mEq (1.28 mEq/kg), Oral, ONCE, On Tue06/25/24 at 1950, For 1 dose, DO NOT CRUSH 1950 ($Given - Provi yomi: Marylou Scott RN) sodium chloride 0.9% BOLUS 1,000 mL (COMPLETED) Intravenous, 1,000 mL, ONCE, at 1,000 mL/hr, Administer over 1 Hours, On Tue06/25/24 at 1625, For 1 dose 1640 ($New Bag - Pro vider: Martha Martins RN)[id number] (Stopped - Provider: Jayne Farnsworth RN) PRN Medication Order 06/23/2024 06/24/2024 06/25/2024 ondansetron (ZOFRAN) injection 4 mg 4 mg (0.128 mg/kg), Intravenous, EVERY 15 MIN PRN, nausea, up to three doses, Administer over 2-5 Minutes, Starting on Tue06/25/24 at 1621 1640 ($Given - Provi yomi: Martha Martins RN) documented in this encounter Care Teams Luggage Liner Relationship Specialty Start Date End Date Diana Alcantar NP [place] [address] [place] [address] PCP - General 06/18/23 Juliana Churchill MD [address] [place] [address] Hematology 05/20/23 Juliana Churchill MD [address] [place] [address] Assigned Cancer Care Provider 06/30/23 Roosevelt Carrasco MD [address] [place] [address] [address] [place], [place] [id number] Otolaryngology 07/20/23 documented as of this encounter
[2024-07-03] VITALS (13 sets, daily range): BP systolic 86–94; BP diastolic 54–68; PULSE 47–60; RESP 18; TEMP 36.6; O2SAT 97–100; BMI 11.1
--- OUTSIDE RECORDS SUMMARY | 2024-07-03 13:46 | XMS_ITS | Clinical Summary ---
Author Organization [facility] Address [address] [place] [address] Care Team Providers Care Enterprise Sales Executive Name Role Phone Juliana Churchill MD Unavailable [phone] Diana Alcantar NP Primary Care Provider [phone] Juliana Churchill MD Unavailable [phone] Roosevelt Carrasco MD Unavailable Allergies Active Allergy Reactions Criticality Noted Date Comments Dextrin Anaphylaxis High 03/10/2015 Even someone that drank something with corn could breath on her and cause anaphylaxis [place]-Containing Products Anaphylaxis High 02/28/2016 Milk Protein Anaphylaxis High 05/21/2017 Blue Dye #1 ([place] Blue) 03/18/2016 Red Dye #40 ([place]ura Red) 03/18/2016 Gluten Meal 07/21/2015 Latex Unknown 09/02/2017 Perfume Anaphylaxis High 05/21/2017 Pineapple Hives 12/22/2013 PN: stomach pain, numb mouth Rice 02/28/2016 Shellfish-Derived Products 02/10/2018 Wheat 02/28/2016 Medications EPINEPHrine 0.3 MG/0.3ML injectionIndica tions:Idiopathi c mast cell activation syndrome Inject 0.3 mLs (0.3 mg) into the muscle as needed for anaphylaxis 0.6 mL 3 7 Active ARMOUR THYROID 30 MG tablet 3 Active ondansetron (ZOFRAN ODT) 4 MG ODT tab Take 1 tablet (4 mg) by mouth every 6 hours as needed for nausea or vomiting. 12 tablet 5 Active potassium chloride cherry ER (KLOR-CON M20) 20 MEQ CR tablet Take 2 tablets (40 mEq) by mouth daily. 8 tablet 5 Active Active Problems Patient Care Coordination No te Formatting of this note is d ifferent from the original. HOSPITAL CARE PLAN Approved by Geovanna Rosen CONTACT LENS INSPECTOR and Kiarra HOLLIDAY June 24, 2016 Goals of hospitalization include: Improvement in nutritional status with 0.2 kg/day weight gain. Stabilization of vital signs. Increased endurance as assessed by therapies. Stabilization of metabolic status. Resolution of acute medical issues. Once these goals are achieved, the patient will be transferred to an inpatient Eating Disorder Program if available or appropriate level of care or home with homecare services including OT, PT, RN, SW, and outpatient eating disorder therapy, and PCP follow-up care. Criteria for Hospital Discharge: Heart rate >50 bpm while awake Heart rate > 40 bpm while asleep Systolic pressure >90 mmHg Temperature >96 ?F Resolution of arrhythmia Resolution of electrolyte abnormalities Resolution of tears and hematemesis Resolution of vomiting No longer suicidal or has adequate psychiatric care Source: SE Marie, FREDDIE Reyes, et al. Medical Stabilization of adolescents with nutritional insufficiency: a clinical care path. Eat Weight Disord (2016) 21: 403-410. Care Plan for Inpatient: 1. Three times a week, weight at 1100 in hospital gown only and after voiding. Do not communicate weight to patient. 2. RD to assist in nutritional plan to expect a weight gain of 0.2 kg/day. 3. Medication administration should be supervised to ensure patient compliance. 4. All food intake will be monitored. Patient and mother will communicate to housekeeping staff before food consumption. RN/NST will observe the patient eat over a 30 minute time period for each m eal and 20 minutes for each s nack . 5. Intake and output strictly recorded. 6. Any supplements given must be supervised. This is not negotiable. 7. MD and RD will determine the required po intake for each day. As suggested by psychiatry, p o intake of X amount for X period of time. RD in collaboration with nursing and team shall develop a feeding schedule that will be documented and posted in patient s room. 8. Reduction in tube feedings should be dependent upon X intake daily or X time period. 9. Instruct family/patient that any alteration of the feeding schedule must be discussed with the attending and approved by the team prior to initiation. 10. Instruct patient/family on purpose of these precautions. 11. Bowel regimen as ordered. 12. Document patient s behavior in medical record every shift. 13. Document preventive skin measures. 14. Therapy to document all progress toward independent ambulation in their progress notes. 15. Therapy sessions will not be cancelled without agreement by the medical team. 16. Every 3 day labs: CMP, Magnesium, Phosphorus. Others at discretion of medical team. 17. Vital signs/orthostatic vitals when up with therapy. 18. Psychiatry consult at a minimum of bi-weekly to determine cognitive reasoning and ability to initiate CBT. 19. Recommend baseline DEXA if not done. 20. Consider cardiac imaging evaluation. 21. Interprofessional team conference weekly on Tuesday to clearly identify progress toward goals of care and collaboratively make changes to plan of care as needed. 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 Intractable nausea and vomiting 03/10/2015 Resolved Problems Problem Noted Date Diagnosed Date Resolved Date Muscle weakness (generalized) 03/12/2019 05/21/2019 Encounters Date Type Department Care Team Description 06/28/2024 MyC Medical Advice [address] [place] [address] Juliana Churchill MD 06/25/2024 4:08 PM CDT - 06/25/2024 7:55 PM CDT Emergency [facility] [address] [place] [address] Umair Ruiz MD Atypical chest pain; Hypokalemia; Nausea and vomiting, unspecified vomiting type Discharge Disposition: Home or Self Care 06/25/2024 Travel 06/14/2024 9:00 AM CDT Oncology Visit [facility] [address] [place] [address] Juliana Churchill MD Anemia in other chronic diseases classified elsewhere (Primary Dx); Neutropenia, unspecified type; Thrombocytopenia 06/14/2024 Travel 06/09/2024 Travel from Last 3 Months Social History Tobacco Use Types Packs/Day Years [...] on file Legal Sex 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 Gender Identity Not on file Sexual Orientation Not on file Last Filed Vital Signs Vital Sign Reading [...] Mass Index 11.48 06/25/2024 3:49 PM CDT Plan of Treatment Health Maintenance Due Date Last Done Comments ADVANCE CARE PLANNING 1995 ANNUAL REVIEW OF HM ORDERS 1995 YEARLY PREVENTIVE VISIT 09/09/1999 10/01/1998 PAP 2017 DTAP/TDAP/TD VACCINE (7 - Td or Tdap) 01/23/2019 01/23/2009, 08/22/2001, 12/13/1997, Additional history exists COVID-19 VACCINE ( season) 2023 TSH W/FREE T4 REFLEX 05/16/2024 05/17/2023, 05/21/2017, 05/21/2017, Additional history exists INFLUENZA VACCINE (Season Ended) 2024 12/18/2002 ZOSTER VACCINE (1 of 2) 2046 HEPATITIS B VACCINE Completed 06/04/1997, 01/08/1997, 1996 MENINGITIS VACCINE Completed 01/15/2014, 01/23/2009 HEPATITIS C SCREENING Completed 03/02/2016 HIV SCREENING Completed 03/02/2016 PHQ-2 (once per calendar year) Completed 06/14/2024, 02/24/2016, 12/05/2015, Additional history exists HPV VACCINE Aged Out No longer eligi ble based on patient's age to complete this topic PNEUMOCOCCAL VACCINE: PEDIATRICS (0 to 5 YEARS) AND AT-RISK PATIENTS (6 to 49 YEARS) Aged Out No longer eligible based on patient's age to complete this topic Procedures Procedure Name Priority Date/Time Associated Diagnosis Comments TROPONIN T, HIGH SENSITIVITY STAT 06/25/2024 6:22 PM CDT XR CHEST 2 VIEWS STAT 06/25/2024 5:32 PM CDT CBC WITH PLATELETS & DIFFERENTIAL STAT 06/25/2024 4:30 PM CDT CBC WITH PLATELETS AND DIFFERENTIAL STAT 06/25/2024 4:30 PM CDT EXTRA RED TOP TUBE STAT 06/25/2024 4: 30 PM CDT MAGNESIUM STAT 06/25/2024 4:30 PM CDT D DIMER QUANTITATIVE STAT 06/25/2024 4:30 PM CDT LIPASE STAT 06/25/2024 4:30 PM CDT COMPREHENSIVE METABOLIC PANEL STAT 06/25/2024 4:30 PM CDT EXTRA TUBE STAT 06/25/2024 4:30 PM CDT TROPONIN T, HIGH SENSITIVITY STAT 06/25/2024 4:30 PM CDT EKG 12-LEAD, TRACING ONLY STAT 06/25/2024 3:57 PM CDT LAB RESULT - HIM SCAN 05/15/2024 12:00 AM CDT THYROID STIMULATING HORMONE (TSH) (EXTERNAL RESULT) Routine 05/17/2023 11:16 AM CDT HIV ANTIGEN ANTIBODY COMBO Timed 03/02/2016 11:29 AM HORSE STUD MANAGER HEPATITIS C ANTIBODY Timed 03/02/2016 11:29 AM HORSE STUD MANAGER from Last 3 Months or Most Recently Relevant to Health Maintenance Results * Troponin T, High Sensitivity (06/25/2024 6:22 PM CDT) Only the most recent of2 resultswithin the time period is included. Pathologist [facility] Troponin T, High Sensitivity 8 <=14 ng/L 06/25/2024 7:10 PM CDT [facility] LABORATORY Comment: Either a [...] - BLOOD ORDERABLES F inal Result LABORATORY [facility] [address] Lab (1st floor, no room number) [place] [address], [facility] * Chest XR, PA & [...] CDT EXAM: XR CHEST 2 VIEWS LOCATION: [facility] DATE/TIME: 06/25/2024 5:32 PM CDT INDICATION: Chest pain. COMPARISON: None available. Procedure Note Paulie-Hoda Bean MD - 06/25/2024 EXAM: XR CHEST 2 VIEWS LOCATION: [facility] DATE/TIME: 06/25/2024 5:32 PM CDT INDICATION: Chest pain. COMPARISON: None available. IMPRESSION: PA and lateral views of the chest were obtained.Cardiomediastinal silhouette is within normal limits. No suspicious focalpulmonary opacities. No significant pleural effusion or pneumothorax. Fewgas-distended bowel loops in the visualized left upper quadrant. Umair Ruiz MD IMG DIAGNOSTIC IMAGING O RDERABLES Final Result * Extra Red Top Tube (06/25/2024 4:30 PM CDT) Hold Specimen [facility] 06/25/2024 5:46 PM CDT LABORATORY Blood STRUCTURE OF LEFT UPPER LIMB / Unknown Venipuncture / Unknown 06/25/2024 4:30 PM CDT 06/25/2024 4:38 PM CDT Umair Ruiz MD LAB - BLOOD ORDERABLES F inal Result [facility] LABORATORY [facility] [address] Lab (1st floor, no room number) [place] [address], [facility] * (ABNORMAL) CBC with platelets and differential [...] LAB - BLOOD ORDERABLES F inal Result [facility] Lab [address] [facility] Lab (1st floor, no room number) [place] [address] * Magnesium (06/25/2024 4:30 PM CDT) Pathologist [facility] Magnesium 2.3 1.7 - 2.3 mg/dL 06/25/2024 5:04 PM CDT LABORATORY Blood BLOOD SPECIMEN / Unknown Venipuncture / Unknown 06/25/2024 4:30 PM CDT 06/25/2024 4:38 PM CDT Umair Ruiz MD LAB - BLOOD ORDERABLES F inal Result [facility] [address] Lab (1st floor, no room number) [place] [address], [facility] * Lipase (06/25/2024 4:30 PM CDT) Pathologist [facility] Lipase 32 13 - 60 U/L 06/25/2024 5:04 PM CDT LABORATORY Blood BLOOD SPECIMEN / Unknown Venipuncture / Unknown 06/25/2024 4:30 PM CDT 06/25/2024 4:38 PM CDT Umair Ruiz MD LAB - BLOOD ORDERABLES F inal Result [facility] [address] Lab (1st floor, no room number) [place] [address], [facility] * D dimer quantitative (06/25/2024 4:30 PM CDT) [facility] D-Dimer Quantitative <0.27 0.00 - 0.50 ug/mL FEU 06/25/2024 4:57 PM CDT LABORATORY Blood BLOOD SPECIMEN / Unknown Venipuncture / Unknown 06/25/2024 4:30 PM CDT 06/25/2024 4:38 PM CDT Narrative LABORATORY - 06/25/2024 4:57 PM CDT This D-dimer assay is intended for use in conjunction with a clinical pretest probability assessment model to exclude pulmonary embolism (PE) and deep venous thrombosis (DVT) in outpatients suspected of PE or DVT. The cut-off value is 0.50 ug/mL FEU. Umair Ruiz MD LAB - BLOOD ORDERABLES F inal Result [facility] [address] Lab (1st floor, no room number) [place] [address], [facility] * (ABNORMAL) Comprehensive metabolic panel (06/25/2024 4:30 PM CDT) [facility] Sodium 142 135 - 145 mmol/L 06/25/2024 5:04 PM CDT [facility] LABORATORY Potassium 2.8(L) 3.4 - 5.3 mmol/L 06/25/2024 5:04 PM CDT LABORATORY Carbon Dioxide (CO2) 29 22 - 29 mmol/L 06/25/2024 5:04 PM CDT LABORATORY Anion Gap 10 7 - 15 mmol/L 06/25/2024 5:04 PM CDT LABORATORY Urea Nitrogen 2.7(L) 6.0 - 20.0 mg/dL 06/25/2024 5:04 PM CDT LABORATORY Creatinine 0.90 0.51 - 0.95 mg/dL 06/25/2024 5:04 PM CDT LABORATORY GFR Estimate 89 >60 mL/min/1.7 3m2 06/25/2024 5:04 PM CDT LABORATORY Comment:eGFR calculated usin 2020 CKD-EPI equation. Calcium 8.8 8.8 - 10.4 mg/dL 06/25/2024 5:04 PM CDT LABORATORY Chloride 103 98 - 107 mmol/L 06/25/2024 5:04 PM CDT LABORATORY Glucose 82 70 - 99 mg/dL 06/25/2024 5:04 PM CDT LABORATORY Alkaline Phosphatase 53 40 - 150 U/L 06/25/2024 5:04 PM CDT LABORATORY AST 30 0 - 45 U/L 06/25/2024 5:04 PM CDT LABORATORY ALT 38 0 - 50 U/L 06/25/2024 5:04 PM CDT LABORATORY Protein Total 5.3(L) 6.4 - 8.3 g/dL 06/25/2024 5:04 PM CDT LABORATORY Albumin 3.7 3.5 - 5.2 g/dL 06/25/2024 5:04 PM CDT LABORATORY Bilirubin Total 0.4 <=1.2 mg/dL 06/25/2024 5:04 PM CDT LABORATORY Blood BLOOD SPECIMEN / Unknown Venipuncture / Unknown 06/25/2024 4:30 PM CDT 06/25/2024 4:38 PM CDT Umair Ruiz MD LAB - BLOOD ORDERABLES F inal Result LABORATORY [facility] [address] Lab (1st floor, no room number) [place] [address] * EKG 12-lead, tracing only (06/25/2024 3:57 PM CDT) Systolic Blood Pressure mmHg RADIOLOGY RESULTS Diastolic Blood Pressure mmHg RADIOLOGY RESULTS Ventricular Rate 49 BPM RAD IOLOGY RESULTS Atrial Rate 49 BPM RADIOLOG Y RESULTS SD Interval 116 ms RADIOLOG Y RESULTS QRS Duration 92 ms RADIOLO GY RESULTS QT 466 ms RADIOLOGY RESULTS QTc 420 ms RADIOLOGY RESULTS P Walker 78 degrees RADIOLOGY RESULTS R AXIS 100 degrees RADIOLOGY RESULTS T Walker 68 degrees RADIOLOGY RESULTS Interpretation ECG Sinus bradycardia Rightward axis Nonspecific ST and T wave abnormality Abnormal ECG When compared with ECG of 08-Aug-2016 09:13, Vent. rate has decreased by 27 bpm T wave inversion more evident in Anterior leads Confirmed by - EMERGENCY ROOM, PHYSICIAN ([id number]), development editor BALDO FLORES ([id number]) on 06/26/2024 7:04:39 AM RADIOLOGY RESULTS 06/25/2024 3:57 PM CDT 06/26/2024 7:04 AM CDT Umair Ruiz MD ECG ORDERABLES Edited R esult - Final RADIOLOGY RESULTS * Lab Result - HIM Scan (05/15/2024 12:00 AM CDT) 05/15/2024 Provider Outside NON-BEAKER LAB TESTING Final Result * (ABNORMAL) Thyroid Stimulating Hormone (TSH) (External Result) (05/17/2023 11:16 AM CDT) TSH (External) 5.51(A) 0.40 - 4.50 mIU/L [facility] Blood 05/17/2023 11:1 6 AM CDT Narrative [facility] - [facility] - 05/17/2023 11:16 AM [facility] - External Lab Results us Provider Outside LAB - HIM EXTERNAL RESULT Final Result [facility] [place] [id number] [place] [address] * HIV Antigen Antibody Combo (03/02/2016 11:29 AM HORSE STUD MANAGER) HIV Antigen Antibody Combo Nonreactive HIV-1 p24 Ag & HIV-1/HIV-[address] [facility] Blood specimen (specimen) 03/02/2016 11:29 AM HORSE STUD MANAGER 03/02/2016 11:59 AM HORSE STUD MANAGER Johanny Correa APRN LOG CLERK LAB - BLOOD ORDERABLES Final Result Performing Organization Address City/[facility]/ZIP Co de Phone Number [address] [address] * Hepatitis C antibody (03/02/2016 11:29 AM HORSE STUD MANAGER) Hepatitis C Antibody Nonreactive Assay performance characteristics have not been established for newborns, infants, and children NR [facility] Blood specimen (specimen) 03/02/2016 11:29 AM HORSE STUD MANAGER 03/02/2016 11:59 AM HORSE STUD MANAGER Johanny Correa APRN LOG CLERK LAB - BLOOD ORDERABLES Final Result Performing Organization Address City/[facility]/ZIP Co de Phone Number [address] [address] from Last 3 Months or Most Recently Relevant to Health Maintenance Insurance * Guarantor: Madison Forde Account Type Relation to Patient Date of Phone Billing Address Personal/Family Self 1995 none (Work) [id number] [place] [address] BCBS OUT OF STATE BCBS OUT OF STATE Advance Directives For more information, please contact: [phone] * Full Code (Latest Code Status on File) Date Activated Date Inactivated Comments 05/21/2017 7:02 PM 05/22/2017 6:37 PM * Full Code Date Activated Date Inactivated Comments 08/13/2016 12:21 PM 05/21/2017 7:02 PM * Full Code Date Activated Date Inactivated Comments 08/07/2016 1:45 PM 08/13/2016 12:21 PM * Full Code Date Activated Date Inactivated Comments 07/07/2016 12:05 PM 08/07/2016 1:45 PM * Full Code Date Activated Date Inactivated Comments 02/28/2016 7:26 PM 07/07/2016 12:05 PM Care Teams Enterprise Sales Executive Relationship Specialty Start Date End Date Diana Alcantar NP [place] [address] [address] PCP - General 06/18/23 Juliana Churchill MD [address] [place] [address] Hematology 05/20/23 Juliana Churchill MD [address] [place] [address] Assigned Cancer Care Provider 06/30/23 Roosevelt Carrasco MD [address] [place] [address] [address] [place], [place] [address] Otolaryngology 07/20/23
--- OUTSIDE RECORDS SUMMARY | 2024-07-03 13:46 | XMS_ITS | Patient Health Record ---
Author Organization [facility] Address [address] [place] [address] Care Team Providers Care Conductor Orchestra Name Role Phone Diana Alcantar Primary Care Provider UnavailKate Madrid Unavailable [phone] Ruth Soares Unavailable [phone] Eul, Mikayla Unavailable [phone] Allergies No Known Allergies Results Component Value Reference Range Notes ESTRADIOL Reviewed date:06/09/2024 08:15:24 AM Interpretation: Performing Lab:[facility] [address] [facility] HospitalYoelIdtoAN[address] Miguel Dutton Notes/Report: 0; 0; 0; 0 ESTRADIOL <15 Reference Range Follicular Phase: 19-144 Mid-Cycle: 64-357 Luteal Phase: 56-214 Postmenopausal: < or = 31 Reference range established on post-pubertal patient population. No pre-pubertal reference range established using this assay. For any patients for whom low Estradiol levels are anticipated (e.g. males, pre-pubertal children and hypogonadal/post-menopausal females), the [facility] Estradiol, Ultrasensitive, LCMSMS assay is recommended (order code 28316). Please note: patients being treated with the drug fulvestrant (Faslodex(R)) have demonstrated significant interference in immunoassay methods for estradiol measurement. The cross reactivity could lead to falsely elevated estradiol test results leading to an inappropriate clinical assessment of estrogen status. Accelera order code 46090-Ctkkgbsut, Ultrasensitive LC/MS/MS demonstrates negligible cross reactivity with fulvestrant. FSH Reviewed date:06/09/2024 08:15:24 AM Interpretation: Performing Lab:[facility] [address], [place]qqz[place] Miguel Dutton Notes/Report: 0; 0; 0; 0 FSH <0.7 Reference Range Follicular Phase 2.5-10.2 Mid-cycle Peak 3.1-17.7 Luteal Phase 1.5- 9.1 Postmenopausal 23.0-116.3 LH Reviewed date:06/09/2024 08:15:24 AM Interpretation: Performing Lab:[facility] [address], [place] TpqiMV[address] Miguel Dutton Notes/Report: 0; 0; 0; 0 LH <0.2 Reference Range Follicular Phase 1.9-12.5 Mid-Cycle Peak 8.7-76.3 Luteal Phase 0.5-16.9 Postmenopausal 10.0-54.7 PROLACTIN Reviewed date:06/09/2024 08:15:24 AM Interpretation: Performing Lab:[facility] [employer], [place] Miguel Dutton Notes/Report: 0; 0; 0; 0 PROLACTIN 8.5 Reference Range Females Non- 3.0-30.0 10.0-209.0 Postmenopausal 2.0-20.0 Testosterone, Total (IH) Reviewed date:06/14/2024 04:05:43 PM Interpretation: Performing Lab: Notes/Report: Access 2 ([id number]), [place] - Lab Reason For Referral Reason 4.9.25 Amenorrhea Sched 4.30 Diagnosis 1 Amenorrhea (N91.2) Referral Organization [facility] Referring Provider First Name Diana Referring Provider Last Name Ortiz Referring Provider Speciality Family Med icine Referred Organization [facility] Referred Provider Mikayla Roa Referred Address [address] [place], [place],[address], Referred Provider Specialty Elastic Attacher Chainstitch and safety lamp keeper Referral Priority Routine Reason [facility] 06/15 Diagnosis 1 Amenorrhea, secondar y (N91.1) Diagnosis 2 Family planning (Z30 .09) Referral Organization [facility] Referring Provider First Name Mikayla Referring Provider Last Name Crispin Referring Provider Speciality Obstetrici an and safety lamp keeper Referred Provider Specialty Family plann ing doctor General Notes Mikayla Roa 025 09:48:11 AM CDT > Please send referral to [facility] for secondary amenorrhea, desires . Workup with our office in progress. Clinical Notes Jose Armando Orona 06/2024 04:11:55 PM > Referral made and faxed to [facility] using [phone] for phone and [phone] for fax., Jose Armando Orona 06/15/2024 09:14:13 AM > LVM with [facility] to see if referral was received [facility], Jose Armando Orona 06/19/2024 10:21:26 AM > Referral received [facility] Referral Priority Routine Medications Medication SIG (Take, Route, Frequency, Duration) Notes Start Date End Date Status Estradiol 0.05 MG/24HR 1 patch to skin Transdermal Two times a Week for 30 days Pt having side effects on full dose. Need to start lower and titrate up 06/27/2024 Active Progesterone Cream Active Estradiol 0.1 MG/24HR 1 patch to skin Transdermal Two times a Week for 90 days 06/13/2024 Active [place] Thyroid 60 MG TAKE 1 TABLET BY MOUTH ON AN EMPTY STOMACH ORALLY ONCE A DAY 90 DAYS Oral for 90 Days Active Estradiol 0.0375 MG/24HR APPLY 1 PATCH TOPICALLY TO THE SKIN 2 TIMES A WEEK Transdermal for 28 Days Active Lasix Active Social History Tobacco Use: Social History Observation Description Date Details (start date - stop date) Never Smoker NA - NA Tobacco Control (Standard) Question Answer Notes Tobacco use: Nonsmoker Problems Problem Type SNOMED Code ICD Code Onset Dates Problem Status W/U Status Risk Notes Problem Amenorrhea (79345887) Amenorrhea (N91.2) Active confirmed Problem Amenorrhea (61387674) Amenorrhea, secondary (N91.1) Active confirmed Problem 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) Hypogonadotropic hypogonadism syndrome, 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 Problem 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 Problem Deficiency of macronutrients (disorder) (931636819) Malnutrition, unspecified type (E46) Active confirmed Vital Signs Blood pressure diastolic 48 mm Hg 06/13/2024 Height 65 in 06/13/2024 Blood pressure systolic 80 mm Hg 06/13/2024 Weight 70.4 lbs 06/13/2024 BMI 11.71 kg/m2 06/13/2024 Encounters Encounter Location Date Provider Diagnosis [facility] [address] [place] [address] 06/13/2024 Mikayla Eul Hypogonadotropic hypogonadism syndrome, female E23.0 ; Secondary amenorrhea N91.1 and Vaginal dryness N89.[address] [id number] 06/08/2024 Mikayla Eul Amenorrhea, secondar y N91.1 [facility] [address] [place] [address] 06/06/2024 Mikayla Eul Malnutrition, unspec ified type E46 ; Amenorrhea, secondary N91.1 and Mast cell activation syndrome D89.40 [facility] [address] [place] [address] 06/06/2024 Mikayla Eul Pelvic pain R10.[address] [id number] 06/14/2024 Mikayla Eul [facility] [address] [place] [address] 06/08/2024 Mikayla Eul [facility] [address] [place] [address] 06/29/2024 Mikayla Eul [facility] [address] [place] [address] 06/21/2024 Mikayla Eul [facility] [address] [place] [address] 06/21/2024 Mikayla Eul Assessments Encounter Date Diagnosis (ICD Code) Assessment Notes Treatment Notes Treatment Clinical Notes Section Notes 06/06/2024 Malnutrition, unspecified type (ICD-10 - E46) secondary to [facility] Suspected etiology of secondary amenorrhea 06/08/2024 Amenorrhea, secondary (ICD-10 - N91.1) 06/13/2024 Secondary amenorrhea (ICD-10 - N91.1) See above plan 06/06/2024 Pelvic pain (ICD-10 - R10.2) 06/06/2024 Amenorrhea, secondary (ICD-10 - N91.1) Likely [...] would recommend she also establish with a vice president process to assist with maintaining the (and even helping achieve ). Will send a referral to [facility] Will have patient return after her labs to discuss further plan of care 06/13/2024 Hypogonadotropic hypogonadism syndrome, female (ICD-10 - [...] to compound progesterone in olive oil at [facility]. She is excited to try this and [...] patient I would defer management to them 06/06/2024 Mast cell activation syndrome (ICD-10 - D89.40) Managed by other physicians 06/13/2024 Vaginal dryness (ICD-10 - N89.8) Offered vaginal estrogen or Replens therapy. She would like to hold off on vaginal estrogen for now - we are both hopeful that the patch will provide some improvement in dryness 06/06/2024 Other Today's visit involved the ongoing management of multiple chronic, interconnected conditions significantly impacting the patient's quality of life and care complexity. Considerable time and cognitive effort were dedicated to addressing these conditions, discussing treatment options, coordinating care, patient counseling, and shared decision-making. 06/13/2024 Other Today's visit involved the ongoing [...] and coordination of care. Plan Of Treatment Next Appt Details Provider Name:Mikayla Millerwendy, 0 09/12/2024 02:00:00 PM, [address], [place], [address], Insurance Providers Payer Name Payer Address Payer Phone Subscriber Number Group Number Insured Name Patient Relationship to Insured Coverage Start Date Coverage End Date BCBS - (Client Bill) [address] [place] [phone] [id number] [place] Forde Self - patient is the insured Medical (General) History Medical History History ICD Code Anemia Amenorrhea Jaundice Hypothyoidism Surgical History Surgery Date(Month/Year) Tonsillectomy/Adenoid Removal 05/2008 Bone Infection 11/2017 Salvia Gland Removal 12/2023
--- OUTSIDE RECORDS SUMMARY | 2024-07-03 13:46 | XMS_ITS | Encounter Summary ---
Author Organization [facility] Address [address] [place] [address] Care Team Providers Care History Instructor Name Role Phone Juliana Churchill MD Unavailable [phone] Diana Alcantar NP Primary Care Provider [phone] Juliana Churchill MD Unavailable [phone] Roosevelt Carrasco MD Unavailable [phone] Encounter Details Date Type Department Care Team (Late st Contact Info) Description 06/28/2024 [facility] Medical Advice [facility] [place] [address] [facility] [address] [place] [address] Juliana Churchill MD [address] [facility] [address] [place] [id number] Social History Tobacco Use Types Packs/Day Years [...] on file 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 Gender Identity Not on file Sexual Orientation Not on file documented as of this encounter Plan of Treatment Not on file documented as of this encounter Visit Diagnoses Not on filedocumented in this encounter Care Teams History Instructor Relationship Specialty Start Date End Date Diana Alcantar JDE DEVELOPER [place] [address] [place] [address] PCP - General 06/18/23 Juliana Churchill MD [address] [place] [address] [facility] 05/20/23 Juliana Churchill MD [address] [place] [address] Assigned Cancer Care Provider 06/30/23 Roosevelt Carrasco MD [address] [place] [address] [address] [place] [address] Otolaryngology 07/20/23 documented as of this encounter
--- OUTSIDE RECORDS SUMMARY | 2024-07-03 13:46 | XMS_ITS | Encounter Summary ---
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 Gender Identity Not on file Sexual Orientation Not on file documented as of this encounter Plan of Treatment Not on file documented as of this encounter Visit Diagnoses Not on filedocumented in this encounter Care Teams Suction Roller Relationship Specialty Start Date End Date Diana Alcantar NP [address] [place] [address] PCP - General 06/18/23 Juliana Churchill MD [address] [place] [address] Hematology 05/20/23 Juliana Churchill MD [address] [place] [address] Assigned Cancer Care Provider 06/30/23 Roosevelt Carrasco MD [address] [place] [address] [address] [place], [place] [address] Otolaryngology 07/20/23 documented as of this encounter
--- OUTSIDE RECORDS SUMMARY | 2024-07-03 13:46 | XMS_ITS | Encounter Summary ---
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 Gender Identity Not on file Sexual Orientation Not on file documented as of this encounter Plan of Treatment Not on file documented as of this encounter Visit Diagnoses Not on filedocumented in this encounter Care Teams Medication Nurse Relationship Specialty Start Date End Date Diana Alcantar NP [address] [place] [address] PCP - General 06/18/23 Juliana Churchill MD [address] [place] [address] Hematology 05/20/23 Juliana Churchill MD [address] [place] [address] Assigned Cancer Care Provider 06/30/23 Roosevelt Carrasco MD [address] [place] [address] [address] [place], [place] [address] Otolaryngology 07/20/23 documented as of this encounter
--- OUTSIDE RECORDS SUMMARY | 2024-07-03 13:46 | XMS_ITS | Encounter Summary ---
Author Organization [facility] Address [address] [place] [address] Care Team Providers Care Insulation Blower Name Role Phone Juliana Churchill MD Unavailable [phone] Diana Alcantar NP Primary Care Provider [phone] Juliana Churchill MD Unavailable [phone] Roosevelt Carrasco MD Unavailable [phone] Encounter Details Date Type Department Care Team (Latest Contact Info) Description 06/09/2024 Travel Social History Tobacco Use Types Packs/Day Years Used Date Smoking Tobacco: Never Smokeless Tobacco: Never Alcohol Use Standard Drinks/Week Comments No 0 (1 standard drink = 0.6 oz pur e alcohol) PHQ-2 Answer Date Recorded PHQ-2 Score 0 02/14/2018 Adolescent Education Answer Date Record ed Getting School Help Needed Not on file 11/08 Comments No Sex and Gender Information Value Date Recorded Sex Assigned at Not on file 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 Gender Identity Not on file Sexual Orientation Not on file documented as of this encounter Plan of Treatment Not on file documented as of this encounter Visit Diagnoses Not on filedocumented in this encounter Care Teams Insulation Blower Relationship Specialty Start Date End Date Diana Alcantar NP [address] [address] PCP - General 06/18/23 Juliana Churchill MD [address] [place] [address] Hematology 05/20/23 Juliana Churchill [place] [address] [place] [place] [address] Assigned Cancer Care Provider 06/30/23 Roosevelt Carrasco MD [address] [place] [address] [address] [place], [place] [address] Otolaryngology 07/20/23 documented as of this encounter
--- NOTE | 2024-07-03 14:08 | ED.GENADULT ---
HPI - General Adult General Chief complaint: Unspecified Complaint, Adult Stated complaint: Julianna low- sent by Doctor Time Seen by Provider: 07/03/24 13:20 Source: patient Mode of arrival: ambulatory Limitations: no limitations History of Present Illness HPI narrative: Patient is a 28 year old female presenting to the emergency department for an abnormal lab elevated from an outpatient follow-up. 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 She had a follow-up appointment today and her potassium was 2.2. It was 2.8 in the emergency department in [facility] on 06/25/2024. She was given oral potassium pills look has been unable to take come due to for nausea and vomiting. She has being given Zofran for the nausea shows some mild improvements in his symptoms. States she does not eat during the day and only drinks juices. States she is afraid to eat anything more due to the nausea. She will try needed night and then states she will vomit. States she vomits about 4 times a day. She states this nausea vomiting has been worked up and they are related to her mast cell activation syndrome. States she feels otherwise asymptomatic. Her blood pressure is low in triage but she states that is her baseline. Denies fevers, chills, chest pain, shortness of breath, lightheadedness, dizziness, weakness, numbness, abdominal pain. Related Data Home Medications ?Medication ?Instructions ?Recorded ?Confirmed amoxicillin 875 mg-potassium 1 tab PO BID 07/03/24 07/03/24 clavulanate 125 mg tablet estradiol 0.1 mg/24 hr semiweekly 1 patch topical 2XW 07/03/24 07/03/24 transdermal patch furosemide .ROUTE 07/03/24 levothyroxine 25 mcg tablet 25 mcg PO QAM 07/03/24 07/03/24 minoxidil-progesterone topical 07/03/24 ondansetron 4 mg disintegrating 4 mg PO Q6H PRN nausea/vomiting 07/03/24 07/03/24 tablet Previous Rx's ?Medication ?Instructions ?Recorded potassium chloride 20 mEq 20 meq PO DAILY #10 tabs 07/03/24 tablet,extended release Allergies Allergy/AdvReac Type Severity Reaction Status Date / Time corn Allergy Verified 07/03/24 12:44 Review of Systems Status of ROS: Reports: 10 or more systems reviewed and unremarkable except as noted in History and below Exam Narrative: Exam Narrative: Const: Very thin, in no distress Eyes: PERRL, no conjunctival injection, and symmetrical lids HENT: Atraumatic external nose and ears. Moist mucous membranes. Neck: Symmetric, trachea midline, No thyromegaly. CVS: Bradycardic, No murmurs or gallops. Peripheral pulses 2+ and equal in all extremities RESP: Unlabored respiratory effort. Clear to auscultation bilaterally. GI: Nontender/Nondistended, No rebound or guarding. MSK:Extremities w/o deformity, Normal Active ROM Skin: Warm, Dry. No rashes or lesions. Neuro: Normal Muscle tone, No focal neurological deficits. Psych: Awake, Alert, & Oriented x3. Appropriate mood and affect. Const: Vital Signs, click to edit/add: Vital Signs - 24 hr 07/03/24 12:39 07/03/24 13:12 07/03/24 13:13 Temperature 97.9 F Pulse Rate 52 L 53 L Pulse Rate [Pulse Oximeter] 60 Respiratory Rate 18 Blood Pressure 93/54 L Blood Pressure [Ri ght Upper Arm] 86/58 L Pulse Oximetry 100 100 100 Oxygen Delivery Me od Room Air 07/03/24 13:15 07/03/24 13:16 07/03/24 13:17 Temperature Pulse Rate 51 L 54 L 55 L Pulse Rate [Pulse Oximeter] Respiratory Rate Blood Pressure Blood Pressure [Ri ght Upper Arm] Pulse Oximetry 100 100 [facility] 13:30 07/03/24 13:31 07/03/24 13:45 Temperature Pulse Rate 51 L 48 L 49 L Pulse Rate [Pulse Oximeter] Respiratory Rate Blood Pressure 90/63 Blood Pressure [Ri ght Upper Arm] Pulse Oximetry 97 100 100 [facility] 07/03/24 13:46 07/03/24 14:01 07/03/24 14:02 Temperature Pulse Rate 49 L 47 L 49 L Pulse Rate [Pulse Oximeter] Respiratory Rate Blood Pressure 94/68 93/64 Blood Pressure [Ri ght Upper Arm] Pulse Oximetry 100 100 100 [facility] 07/03/24 14:15 Temperature Pulse Rate 49 L Pulse Rate [Pulse Oximeter] Respiratory Rate Blood Pressure Blood Pressure [Ri ght Upper Arm] Pulse Oximetry 100 Oxygen Delivery Me thod Course Vital Signs Vital signs: Initial Vital Signs Temperature 97.9 F 07/03/24 12:39 Temperature Source Temporal Artery Scan 07/03/24 12:39 Pulse Rate 60 07/03/24 12:39 Respiratory Rate 18 07/03/24 12:39 Blood Pressure 86/58 L 07/03/24 12:39 Blood Pressure Mean 67 L 07/03/24 12:39 Blood Pressure Position Sitting 07/03/24 12:39 Pulse Oximetry 100 07/03/24 12:39 Oxygen Delivery Method Room Air 07/03/24 12:39 Vital Signs Temperature 97.9 F 07/03/24 12:39 Pulse Rate 60 07/03/24 12:39 Respiratory Rate 18 07/03/24 12:39 Blood Pressure 86/58 L 07/03/24 12:39 Pulse Oximetry 100 07/03/24 12:39 Oxygen Delivery Method Room Air 07/03/24 12:39 Temperature 97.9 F 07/03/24 12:39 Pulse Rate 49 L 07/03/24 14:15 Respiratory Rate 18 07/03/24 12:39 Blood Pressure 93/64 07/03/24 14:01 Pulse Oximetry 100 07/03/24 14:15 Oxygen Delivery Method Room Air 07/03/24 12:39 Medications Administered Medications: Generic Name Dose Route Start Last Admin Trade Name Freq PRN Reason Stop Dose Admin Potassium Chloride 10 meq in 100 mls @ 100 mls/hr 07/03/24 14:45 07/03/24 17:44 Potassium Chloride IVPB 07/03/24 20:14 100 mls/hr Q90M JASON Administration Discontinued Medications Generic Name Dose Route Start Last Admin Trade Name Freq PRN Reason Stop Dose Admin Lactated Ringer's 1,000 mls @ 1,000 mls/hr 07/03/24 14:35 07/03/24 17:44 Lactated Ringers 1000 Ml IV 07/03/24 15:34 Infused .Q1H ONE Infusion Ondansetron HCl 4 mg 07/03/24 14:35 07/03/24 15:40 Ondansetron 2 Mg/Ml Inj IVP 07/03/24 14:36 4 mg ONCE ONE Administration Potassium Chloride 40 meq 07/03/24 14:35 07/03/24 15:20 Potassium Chloride 10 Meq Capsule Er PO 07/03/24 14:36 40 meq ONCE ONE Administration Medical Decision Making MDM Narrative Medical decision making narrative: Patient is a 28-year-old female presenting to the emergency department for abnormal lab work. She was hypokalemic. Was 2.2 outpatient. Will recheck potassium here along with magnesium and phosphorus. CBC also ordered. Will give her L of fluids also. Lactated Ringer's chosen for its small potassium content also. EKG shows no concerning findings. CBC, magnesium, phosphorus shows no concerning abnormalities. She does have a potassium of 2.5. Sodium was 130 and chloride at 94. Will try both oral potassium and IV potassium considering all low her potassium is and she does have difficulty taking oral potassium due to her nausea. Was able to take the potassium pills. Did get through a couple doses of the IV potassium and she states she would like to go home as she does not like driving past 18:00. Shared these incision making was done and it was decided that we will check a repeat potassium and make a decision from there. Repeat potassium did come up to 2.7. She continues to feel asymptomatic. States she is not taking potassium pills at home and was just told to take electrolyte packets. I will give her some oral potassium to take for the next few days in told her she needs to follow up with her primary care provider. She is agreeable to this plan Lab Data Labs: Lab Results 07/03/24 07/03/24 Range/Units 13:59 17:12 WBC 3.15 L (4.50-11.00) K/uL RBC 3.09 L (4.00-5.20) m/uL Hgb 10.6 L (12.0-16.0) gm/dL Hct 29.7 L (33.0-51.0) % MCV 96 (80-100) fL MCH 34 (26-34) pg MCHC 36 (32-36) gm/dL RDW Coeff of Adrian 12.2 (11.5-15.5) % Plt Count 238 (140-440) K/uL Neut % (Auto) 34.3 L (42.0-72.0) % Lymph % (Auto) 55.2 H (20-44) % Louisa % (Auto) 10.5 (0.0-11.0) % Eos % (Auto) 0.0 (0.0-7.0) % Baso % (Auto) 0.0 (0.0-3.0) % Neut # (Auto) 1.10 L (1.7-7.0) K/uL Lymph # (Auto) 1.70 (0.90-2.90) K/uL Louisa # (Auto) 0.30 (0.00-0.90) K/UL Eos # (Auto) 0.00 (0.00-0.50) K/uL Baso # (Auto) 0.00 (0.00-0.30) K/uL Abs Immat Gran (auto) 0.00 (0.00-0.30) K/uL Imm/Tot Granulo (auto) 0.0 % Sodium 130 L (135-149) mmol/L Potassium 2.5 L* 2.7 L* (3.6-5.1) mmol/L Chloride 94 L (96-114) mmol/L Carbon Dioxide 32 (20-32) mmol/L Anion Gap 4 L (7-15) mEq/L BUN 5 (5-24) mg/dL Creatinine 1.0 (0.5-1.5) mg/dL Estimated Creat Clear 40.54 Estimated GFR 79 ml/min Glucose 71 (60-115) mg/dL Calcium 8.4 (8.4-10.6) mg/dL Phosphorus 4.1 (2.5-4.5) mg/dL Magnesium 2.4 (1.5-2.6) mg/dL ECG Data Attestation: I personally reviewed and interpreted this ECG as follows: Prior ECG tracings: not available for review Interpretation: Sinus bradycardia with a rightward axis, rate of 46 beats per minute, normal intervals, normal axis, no ST or T-wave abnormalities. Discharge Plan Discharge Clinical Impression: Hypokalemia Patient Disposition: Home, Self-Care Condition: Stable Instructions: Potassium Content of Foods List (ED), Hypokalemia (ED) Additional Instructions: Start taking the potassium pills provided starting tomorrow. Return to emergency department for new or worsening symptoms. It is very important that you have close follow-up with your primary care provider for repeat lab work. Prescriptions: New potassium chloride 20 mEq tablet extended release 20 meq PO DAILY Qty: 10 0RF No Action minoxidil-progesterone topical furosemide [Lasix] .ROUTE estradiol 0.1 mg/24 hr patch semiweekly 1 patch topical 2XW levothyroxine 25 mcg tablet 25 mcg PO QAM ondansetron 4 mg tablet,disintegrating 4 mg PO Q6H PRN (Reason: nausea/vomiting) amoxicillin-pot clavulanate 875-125 mg tablet 1 tab PO BID Follow Up/Referrals: Diana Alcantar MOMD TEACHER [Primary Care Provider, Family Practice] Stand Alone Forms: [employer] Info Instructions
[2024-07-03 14:11] LABS: Hematocrit 29.7 % (33.0-51.0); Hemoglobin* 10.6 gm/dL (12.0-16.0); Lymphocytes Percent Auto 55.2 % (20-44); Mean Corpuscular HGB Conc 36 gm/dL (32-36); Mean Corpuscular Hemoglobin 34 pg (26-34); Mean Corpuscular Volume 96 fL (80-100); Monocytes Percent Auto 10.5 % (0.0-11.0); Neutrophils Percent Auto 34.3 % (42.0-72.0); Platelet Count* 238 K/uL (140-440); RDW Coefficient of Variation % 12.2 % (11.5-15.5); Red Blood Count 3.09 m/uL (4.00-5.20); White Blood Count* 3.15 K/uL (4.50-11.00)
[2024-07-03 14:12] LABS: Slide Review Reflex No
[2024-07-03 14:27] LABS: Chloride* 94 mmol/L (96-114); Sodium* 130 mmol/L (135-149)
[2024-07-03 14:30] LABS: Anion Gap 4 mEq/L (7-15); Blood Urea Nitrogen* 5 mg/dL (5-24); Calcium* 8.4 mg/dL (8.4-10.6); Carbon Dioxide* 32 mmol/L (20-32); Est. Creatinine Clearance* 40.54; Estimated Glomerular Filt Rate 79 ml/min; Glucose* 71 mg/dL (60-115); Magnesium* 2.4 mg/dL (1.5-2.6); Phosphorus* 4.1 mg/dL (2.5-4.5)
[2024-07-03 14:33] LABS: Potassium* 2.5 mmol/L (3.6-5.1)
[2024-07-03] MEDS: POTASSIUM CHLORIDE 10 MEQ CAPSULE ER 40 MEQ PO (15:20)
[2024-07-03] MEDS: ONDANSETRON 2 MG/ML inj 4 MG IVP (15:40)
[2024-07-03] MEDS: LACTATED RINGERS 1000 ML 1,000 ML IV (15:40)
[2024-07-03] MEDS: POTASSIUM CHLORIDE 10 MEQ/100 ML PIGGYBACK 100 MEQ IVPB ×3 (15:40→17:44)
[2024-07-03 17:41] LABS: Potassium* 2.7 mmol/L (3.6-5.1)
== END 2024-07-03 18:08 | disposition home or self-care (01) ==
PROVIDERS: Emergency Provider Student in an Organized Health Care Education/Training Program; PCP Nurse Practitioner Family
DX: E87.6 Hypokalemia (principal)
CPT/HCPCS: 36415; 80048; 83735; 84100; 84132; 85025; 96365; 96375; 99284; A9270; J2405; J3480; J7120

== ENCOUNTER 2024-07-09 09:49 | Emergency (ER) | payer BC, SELFPAY ==
--- OUTSIDE RECORDS SUMMARY | 2024-06-06 11:00 | XMS_ITS ---
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 Has not had a cycle in 10 years. Cycle was only present for 1.5yr until it became absent for almost 10 years now. Pt never had an ultrasound done at previous OBGYN, , ca Medications Medication SIG (Take, Route, Frequency, Duration) Notes Start Date End Date Status Pinecrest Thyroid 60 MG TAKE 1 TABLET BY MO [facility] ON AN EMPTY STOMACH ORALLY ONCE A DAY 90 DAYS Oral for 90 Days Active Estradiol 0.0375 MG/24HR APPLY 1 PATCH T OPICALLY TO THE SKIN 2 TIMES A WEEK Transdermal for 28 Days Active Progesterone Cream Active Lasix Active Social History Tobacco Use: Social History Observation Description Date Details (start date - stop date) Never Smoker NA - NA Tobacco Control (Standard) Question Answer Notes Tobacco use: Nonsmoker Problems Problem Type SNOMED Code ICD Code Onset Dates Problem Status W/U Status Risk Notes Problem Deficiency of macronutrients (disorder) (689768390) Malnutrition, unspecified type (E46) Active confirmed Problem Mast cell activation syndrome (42066332464040406 ) 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 Vital Signs Blood pressure systolic 80 mm Hg 06/07/19 25 Blood pressure diastolic 58 mm Hg 025 Height 65 in 06/06/2024 Weight 68.6 lbs 06/06/2024 BMI 11.41 kg/m2 06/06/2024 Encounters Encounter Location Date Provider Diagnosis [facility] [address] [place] [address] 06/06/2024 Mikayla Roa Malnutrition, unspecified type E46 ; Amenorrhea, secondary N91.1 and Mast cell activation syndrome D89.40 Assessments Encounter Date Diagnosis (ICD Code) Assessment Notes Treatment Notes Treatment Clinical Notes Section Notes 06/06/2024 Malnutrition, unspecified type (ICD-10 - E46) secondary to MCAS Suspected etiology of secondary amenorrhea 06/06/2024 Amenorrhea, secondary (ICD-10 - N91.1) Likely secondary to malnutrition. Pt only weighs 65 pounds Will get FSH, LH, estradiol, TSH, and prolactin. She is currently doing estrogen replacement but only is on 0.0375mg patch, likely needs to be on full dose replacement due to her age Her goal is to start menstruating and achieve . Discussed that we may be able to help her menses return and even help achieve , however will not fix her underlying etiology of amenorrhea. Due to this I would recommend she also establish with a commercial sales manager to assist with maintaining the (and even helping achieve ). 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 Considerable time and cognitive effort were dedicated to addressing these conditions, discussing treatment options, coordinating care, patient counseling, and shared decision-making. Plan Of Treatment Treatment Notes Assessment Notes Malnutrition, unspecified type secondary to MCAS Suspected etiology of secondary amenorrhea Amenorrhea, secondary Likely secondary to malnutrition. Pt only weighs 65 pounds Will get FSH, LH, estradiol, TSH, and prolactin. She is currently doing estrogen replacement but only is on 0.0375mg patch, likely needs to be on full dose replacement due to her age Her goal is to start menstruating and achieve . Discussed that we may be able to help her menses return and even help achieve , however will not fix her underlying etiology of amenorrhea. Due to this I would recommend she also establish with a commercial sales manager to assist with maintaining the (and even helping achieve ). Will send a referral to CCR[facility] Will have patient return after her labs to discuss further plan of care Mast cell activation syndrome Managed by other physicians Other Today's visit [facility] ed the ongoing management of multiple chronic, interconnected conditions significantly impacting the patient's quality of life and care complexity. Considerable time and cognitive effort were dedicated to addressing these conditions, discussing treatment options, coordinating care, patient counseling, and shared decision-making. 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 2. C/o; Patient is on estradiol patch and progesterone. Has not had a cycle in 10 years. Cycle was only present for 1.5yr until it became absent for almost 10 years now. Pt never had an ultrasound done at previous OBGYN. 3. [place], ca. * HPI: D epression Screening: PHQ-9 L ittle interest or pleasure in doing things?Not at all F eeling down, depressed, or hopeless N ot at all T rouble falling or staying asleep, or sleeping too much N ot at all F eeling tired or having little energy N ot at all P oor appetite or overeating N ot at all F eeling bad about yourself or that you are a failure, or have let yourself or your family down N ot at all T rouble concentrating on things, such as reading the newspaper or watching television N ot at all M oving or speaking so slowly that other people could have noticed; or the opposite, being so fidgety or restless that you have been moving around a lot more than usual N ot at all T houghts that you would be better off or of hurting yourself in some way N ot at all T otal Score 0 * General: Madison is here for secondary amenorrhea. 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 This was diagnosed by [facility]. she needs a very strict diet to manage these symptoms which contributes to her inability to gain weight, and also when she has flares she feels so unwell that it is difficult for her to eat. She states that during the winter and spring months her symptoms are worse, whereas in the summer she can get up to 85 pounds. These symptoms begain in 2018. 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 She was being seen by an outside electromechanical equipment tester for her secondary amenorrhea. She had a year and a half of normal menses, then in 2018 when the symptoms started she stopped cycling. She was started on an estradiol patch and oral progesterone, however she did not tolerate the oral progesterone. She believes she may have a Soy allergy and there are often soy additives in oral progesterone formulations. She is now on a topical progesterone. The estradiol patch is a 0.0375mg patch. This has not helped her menses return, however she has noted more cervical mucus. She is now doing kokoro progesterone cream. Does estrogen patch 3 weeks, adds progesterone 3rd week, prog only 4th week to mimic a menstrual cycle. Her goal is to start menstruating again and achieve pregnacy. * Medical History: A nemia, Amenorrhea, Jaundice, Hypothyoidism. * Hat Ironer History: D ate of Last Period: . B irth Control: C ondoms. S exual Activity C urrently sexually active. S exually Tranmitted Disease (STD) N one. A bnormal Pap Smear N ever Had One. * OB History: G PAL: G 0. * Surgical History: T onsillectomy/Adenoid Removal 05/2008, Bone Infection 11/2017, Salvia Gland Removal 12/2023. * Hospitalization/Major Diagno stic Procedure: D enies Past Hospitalization. * Family History: N o Family History documented.. * Social History: T obacco Use: T obacco Control (Standard) T obacco use: N onsmoker D rugs/Alcohol: C affeine I ntake: N one Do you smoke marijuana?: Denies. Do you drink alcohol?: No. * Medications: T aking Lasix , Taking Progesterone , Notes to Pharmacist: Cream, Taking Estradiol 0.0375 MG/24HR Patch Twice Weekly APPLY 1 PATCH TOPICALLY TO THE SKIN 2 TIMES A WEEK Transdermal , Taking Pinecrest Thyroid 60 MG Tablet TAKE 1 TABLET BY MOUTH ON AN EMPTY STOMACH ORALLY ONCE A DAY 90 DAYS Oral , Discontinued Sucralfate 1 GM/10ML Suspension SHAKE LIQUID AND TAKE 10 ML BY MOUTH FOUR TIMES DAILY 1 HOUR BEFORE MEALS AND AT BEDTIME ON AN EMPTY STOMACH NEEDED Oral , Medication List reviewed and reconciled with the patient * Allergies: N .K.D.A. Objective: * Vitals: H t: 65 in, Wt:68.6lbs, BP:80/58mm Hg, BMI:11.41Index. * Examination: * General Examination: GENERAL APPEARANCE: i n no acute distress, alert, extremely thin and frail appearing. Assessment: * Assessment: 1. A menorrhea, secondary - N91.1 (Primary) 2 . M alnutrition, unspecified type - E46 3 . M ast cell activation syndrome - D89.40 Plan: * Treatment: 2. M alnutrition, unspecified type Notes: secondary to MCAS Suspected etiology of secondary amenorrhea 3. M ast cell activation syndrome Notes: Managed by other physicians 4. O thers Notes: Today's visit involved the ongoing management of multiple chronic, interconnected conditions significantly impacting the patient's quality of life and care complexity. Considerable time and cognitive effort were dedicated to addressing these conditions, discussing treatment options, coordinating care, patient counseling, and shared decision-making. * Procedure Codes: 9 6127 BRIEF EMOTIONAL/BEHAV ASSMT, Modifiers: 59 * Preventive Medicine: YOUR PREVENTIVE WELLNESS PLAN: D epression Screening: Screening for depression was last done on: 0 06/06/2024 * Images: Billing Information: * Visit Code: 65318 Office Visit, New Pt., Level 4. * Procedure Codes: 31089 BRIEF EMOTIONAL/BEHAV ASSMT. Modifiers: 59 * Sign off status: Completed true * Provider: Howard Roa, DO Date: 0 06/06/2024 Generated for Vibha doran/Stephen/Emiliana on: 0 07/09/2024 09:52 AM CDT History and Physical Notes * HPI (History of Present Illness) Category Sub-Category Detail Notes Category Not es Depression Screening PHQ-9 Little inte rest or pleasure in doing things: Not at all Feeling down, depressed, or hopeless: No t at all Trouble falling or staying asleep, or sl eeping too much: Not at all Feeling tired or having little energy: N ot at all Poor appetite or overeating: Not at all Feeling bad about yourself o r that you are a failure, or have let yourself or your family down: Not at all Trouble concentrating on thi ngs, such as reading the newspaper or watching television: Not at all Moving or speaking so slowly that other people could have noticed; or the opposite, being so fidgety or restless that you have been moving around a lot more than usual: Not at all Thoughts that you would be b rajinder off or of hurting yourself in some way: Not at all Total Score: 0 Examination Category Sub-Category Detail Notes Category Not es *General Examination GENERAL APPEARANCE: in no a cute distress, alert, extremely thin and frail appearing
--- OUTSIDE RECORDS SUMMARY | 2024-06-08 05:30 | XMS_ITS ---
Author Organization [facility] Address [address] [place] [address] Care Team Providers Care Slider Assembler Name Role Phone Diana Alcantar Primary Care Provider Kate Arora Unavailable [phone] Eul Mikayla Unavailable [phone] Results Component Value Reference Range Notes Testosterone, Total (IH) Reviewed date:06/14/2024 04:05:43 PM Interpretation: Performing Lab: Notes/Report: Access 2 ([id number]) [place] [facility] Reviewed date:06/09/2024 08:15:24 AM Interpretation: Performing Lab:[facility]-Visible Measures [id number], Visible Measures [id number] Miguel Dutton Notes/Report: 0; 0; 0; 0 FSH <0.7 Reference Range Follicular Phase 2.5-10.2 Mid-cycle Peak 3.1-17.7 Luteal Phase 1.5- 9.1 Postmenopausal 23.0-116.3 PROLACTIN Reviewed date:06/09/2024 08:15:24 AM Interpretation: Performing Lab:[facility]-[address] [id number], Visible Measures [id number] Miguel Dutton Notes/Report: 0; 0; 0; 0 PROLACTIN 8.5 Reference Range Females Non- 3.0-30.0 10.0-209.0 Postmenopausal 2.0-20.0 ESTRADIOL Reviewed date:06/09/2024 08:15:24 AM Interpretation: Performing Lab:[facility] [id number], [id number] Miguel Dutton Notes/Report: 0; 0; 0; 0 ESTRADIOL <15 Reference Range Follicular Phase: 19-144 Mid-Cycle: 64-357 Luteal Phase: 56-214 Postmenopausal: < or = 31 Reference range established on post-pubertal patient population. No pre-pubertal reference range established using this assay. For any patients for whom low Estradiol levels are anticipated (e.g. males, pre-pubertal children and hypogonadal/post-menopausal females), the [facility] Estradiol, Ultrasensitive, LCMSMS assay is recommended (order code 24521). Please note: patients being treated with the drug fulvestrant (Faslodex(R)) have demonstrated significant interference in immunoassay methods for estradiol measurement. The cross reactivity could lead to falsely elevated estradiol test results leading to an inappropriate clinical assessment of estrogen status. Pusher order code 19098-Qesikhzhw, Ultrasensitive LC/MS/MS demonstrates negligible cross reactivity with fulvestrant. LH Reviewed date:06/09/2024 08:15:24 AM Interpretation: Performing Lab:[facility] [id number] [id number] Miguel Dutton Notes/Report: 0; 0; 0; 0 LH <0.2 Reference Range Follicular Phase 1.9-12.5 Mid-Cycle Peak 8.7-76.3 Luteal Phase 0.5-16.9 Postmenopausal 10.0-54.7 REASON FOR VISIT Hormone Sendout + IH Testo Medications Medication SIG (Take, Route, Frequency, Duration) Notes Start Date End Date Status Lasix Active Estradiol 0.0375 MG/24HR APPLY 1 PATCH T OPICALLY TO THE SKIN 2 TIMES A WEEK Transdermal for 28 Days Active Progesterone Cream Active [place] Thyroid 60 MG TAKE 1 TABLET BY [facility] ON AN EMPTY STOMACH ORALLY ONCE A DAY 90 DAYS Oral for 90 Days Active Encounters Encounter Location Date Provider Diagnosis [facility] [address] [place] [address] [address] [place], [place] [phone] 06/08/2024 Mikayla Roa Amenorrhea, secondar y N91.1 Assessments Encounter Date Diagnosis (ICD Code) Assessment Notes Treatment Notes Treatment Clinical Notes Section Notes 06/08/2024 Amenorrhea, secondary (ICD-10 - N91.1) Plan Of Treatment Next Appt Details Provider Name:Patrick Bradford 09/12/2024 02:00:00 PM, [address] [place], [address], Progress Notes * Jose David FORDEOB:1995 (28 yo F)Acc No.[id number]:06/08/2024 Patient: Madison RUIZ Provider: Howard Roa DO :1995 A ge:28 Y S ex:Female Date:06/08/2024 Address:[address] [place], [place] [phone] Pcp:Diana Alcantar Subjective: * Chief Complaints: * 1 . Hormone Sendout + IH Testo. * Medical History: * Medications: T aking Lasix , Taking Progesterone , Notes to Pharmacist: Cream, Taking Estradiol 0.0375 MG/24HR Patch Twice Weekly APPLY 1 PATCH TOPICALLY TO THE SKIN 2 TIMES A WEEK Transdermal , Taking [place] Thyroid 60 MG Tablet TAKE 1 TABLET BY MOUTH ON AN EMPTY STOMACH ORALLY ONCE A DAY 90 DAYS Oral Objective: * Vitals: Assessment: * Assessment: 1. 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 We will review at your visit next week, however ultimately we will increase your estrogen patch dose and continue cyclic progesterone therapy. See you next week! 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 We will review at your visit next week, however ultimately we will increase your estrogen patch dose and continue cyclic progesterone therapy. See you next week! 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 We will review at your visit next week, however ultimately we will increase your estrogen patch dose and continue cyclic progesterone therapy. See you next week! 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 We will review at your visit next week, however ultimately we will increase your estrogen patch dose and continue cyclic progesterone therapy. See you next week! ?LAB: Testosterone, Total (IH) (Collection Date & Time - 06/11/2024 01:01 PM)* Value Reference Range T estosterone, Total (IH) 4 0-75 - ng/dL * Procedure Codes: 8 2670 ASSAY OF ESTRADIOL, Modifiers: 90 , 40152 GONADOTROPIN (FSH), Modifiers: 90 , 91716 GONADOTROPIN (LH), Modifiers: 90 , 75152 ASSAY OF PROLACTIN, Modifiers: 90 , 25781 ASSAY OF TOTAL TESTOSTERONE - IH, 38438 VENIPUNCT, ROUTINE* * Images: Billing Information: * Visit Code: * Procedure Codes: 20351 ASSAY OF ESTRADIOL. Modifiers: 90 72066 GONADOTROPIN (FSH). Modifiers: 90 98194 GONADOTROPIN (LH). Modifiers: 90 67641 ASSAY OF PROLACTIN. Modifiers: 90 20918 ASSAY OF TOTAL TESTOSTERONE - IH. 71901 VENIPUNCT, ROUTINE*. * Sign off status: Completed Addendum: * true * Provider: Howard Roa, DO Date: 0 06/08/2024 Generated for Vibha doran/Saleemg/eTransmitting on: 0 07/09/2024 09:52 AM CDT
--- OUTSIDE RECORDS SUMMARY | 2024-06-13 06:15 | XMS_ITS ---
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 Medications Medication SIG (Take, Route, Frequency, Duration) Notes Start Date End Date Status Progesterone Cream Active Estradiol 0.1 MG/24HR 1 patch to skin Tr ansdermal Two times a Week for 90 days 06/13/2024 Active [place] Thyroid 60 MG TAKE 1 TABLET BY [facility] ON AN EMPTY STOMACH ORALLY [...] 06/13/2024 Encounters Encounter Location Date Provider Diagnosis [facility] [address] [place] [address] 06/13/2024 Mikayla Roa Hypogonadotropic hypogonadism syndrome, female [...] compound progesterone in olive oil at [facility]. She is excited to try this and [...] compound progesterone in olive oil at [facility]. She is excited to try this and [...] Provider Name:Mikayla Roa, 0 09/12/2024 02:00:00 PM, [address] [place], [address], Progress Notes * Jose David FORDEOB:1995 (28 yo F)Acc No.[id number]:06/13/2024 Progress Notes Patient: Howard Madison LOPEZ Provider: Howard Roa DO :1995 A ge:28 Y S ex:Female Date:06/13/2024 Address:[address] Pcp:Diana Alcantar Subjective: * Chief Complaints: * 1 . FU - labs. 2. Lmp 08/2014. 3. Concerns none. 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 * HPI: * General: Madison is here [...] History: A nemia, Amenorrhea, Jaundice, Hypothyoidism. 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 [...] 2 TIMES A WEEK Transdermal , Taking [place] Thyroid 60 MG Tablet TAKE 1 TABLET [...] * Images: Billing Information: * Visit Code: 32513 Office Visit, Est Pt., Level 4. * Procedure Codes: * Sign off status: Completed true * Provider: Howard Roa DO Date: 06/13/2024 Generated for Vibha doran/Stephen/Emiliana on: 07/09/2024 09:52 AM CDT History and Physical Notes * Examination Category Sub-Category Detail Notes Category Not es *General Examination GENERAL APPEARANCE: in no a cute distress, alert, well hydrated, in no distress
--- OUTSIDE RECORDS SUMMARY | 2024-06-14 09:00 | XMS_ITS | Encounter Summary ---
Author Organization [facility] Address [address] [place] [address] Care Team Providers Care Radioisotope Technologist Name Role Phone Juliana Churchill MD Unavailable [phone] Diana Alcantar NP Primary Care Provider [phone] Juliana Churchill MD Unavailable [phone] Roosevelt Carrasco MD Unavailable [phone] Reason for Visit * Reason Comments Oncology Clinic Visit Anemia Encounter Details Date Type Department Care Team (Late st Contact Info) Description 06/14/2024 9:00 AM CDT Oncology Visit [facility] [address] [facility] [address] [place] [address] Juliana Churchill MD [address] [facility] [place] [id number] Anemia in other chronic diseases classified elsewhere [...] on file Legal 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 Pharmacy name entered into EPIC: [facility] [id number] IN [facility] [place], [place] - [address] [id number] - [place], [place] - [address] [id number] - [place], [place] - [address] [facility] [address] [id number] [place], [place] - [address] AT [place] [address] [address] [facility] Frailty Screening: Is the patient here for a new oncology consult visit in cancer care? 2. No PHQ9: Did this patient require a PHQ9?: No Clinical concerns:Anemia Slick Peraza LPN * Juliana Churchill MD - 06/14/2024 9:00 AM CDT [facility] Hematology and Oncology Progress Note Patient: [...] maintain regular health monitoring. - Consult a aoc airspace control officer if there are any concerns or questions regarding blood counts. She is encouraged to call me with any concerns related to her blood counts. Encounter Diagnoses: Problem List Items Addressed This Visit Anemia - Primary Other Visit Diagnoses Neutropenia, unspecified type Thrombocytopenia CC: Diana Alcantar, CHICKEN FANCIER History of Present Illness Ms. Madison Forde [...] out of 10. She previously lived in [place], which she suggests might have contributed to [...] mass Skin: normal. no rash or abnormalities CELL STRIPPER FINAL: non focal. Lab Results No results found [...] unspecified documented in this encounter Care Teams Radioisotope Technologist Relationship Specialty Start Date End Date Diana Alcantar NP [facility] [address] [place] [address] PCP - General 06/18/23 Juliana Churchill MD [address] [place] [address] [place] [address] Hematology 05/20/23 Juliana Churchill MD [address] [place] [address] [place] [address] Assigned Cancer Care Provider 06/30/23 Roosevelt Carrasco MD [address] [facility] [address] [place], [place] [id number] Otolaryngology 07/20/23 documented as of this encounter
--- OUTSIDE RECORDS SUMMARY | 2024-06-25 16:08 | XMS_ITS | Encounter Summary ---
Author Organization [facility] Address [address] [place] [address] Care Team Providers Care Mutual Fund Analyst Name Role Phone Juliana Chruchill MD Unavailable Diana Alcantar NP Primary Care Provider Juliana Churchill MD Unavailable [phone] Roosevelt Carrasco MD Unavailable [phone] Reason for Visit * Reason Comments Chest Pain Encounter Details Date Type Department Care Team (Late st Contact Info) Description 06/25/2024 4:08 PM CDT - 06/25/2024 7:55 PM CDT Emergency [facility] [address] [place] [address] Umair Ruiz MD [facility] [address] [place] [address] Atypical chest pain; Hypokalemia; Nausea and vomiting, [...] on file 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 * Hypokalemia (Turkish) * Nausea and Vomiting (Turkish) documented in this encounter Medications at Time of Discharge MISSION THYROID 30 MG tablet 11/13/2022 EPINEPHrine 0.3 MG/0.3ML injectionIndicat ions:Idiopathic mast cell activation syndrome Inject 0.3 mLs (0.3 mg) into the muscle as needed for anaphylaxis 0.6 mL 3 07/06/2016 ondansetron (ZOFRAN ODT) 4 MG ODT tab Take 1 tablet (4 mg) by mouth every 6 hours as needed for nausea or vomiting. 12 tablet 06/25/2024 potassium chloride cherry ER (KLOR-CON M20) 20 MEQ CR tablet Take 2 tablets (40 mEq) by mouth daily. 8 tablet 06/25/2024 documented as of this encounter ED Notes [...] Pressure Ventricular Rate 49 Atrial Rate 49 MD Interval 116 QRS Duration 92 QT 466 QTc 420 P [place] 78 R AXIS 100 T [place] 68 Interpretation ECG Sinus bradycardia Rightward axis [...] Documentation None Medical Decision Making / Diagnosis [facility] Diagnoses: None MIPS None MDM Madison Mary [...] T, High Sensitivity (06/25/2024 6:22 PM CDT) [facility] Troponin T, High Sensitivity 8 <=14 ng/L [...] LAB - BLOOD ORDERABLES F inal Result [facility] Lab [address] Lab (1st floor, no room number) [place] [address], [facility] * Chest XR, PA & LAT (06/25/2024 [...] CDT EXAM: XR CHEST 2 VIEWS LOCATION: [facility] DATE/TIME: 06/25/2024 5:32 PM CDT INDICATION: Chest pain. COMPARISON: None available. Procedure Note Hoda Valero MD - 06/25/2024 EXAM: XR CHEST 2 VIEWS LOCATION: [facility] DATE/TIME: 06/25/2024 5:32 PM CDT INDICATION: Chest [...] BLOOD ORDERABLES F inal Result [facility]AT[facility] Acute Care Lab [address] Lab (1st floor, no room number) [place] [address], [facility] * Extra Red Top Tube (06/25/2024 4:30 PM CDT) Pathologist [facility] Hold Specimen [facility] 06/25/2024 5:46 PM CDT [facility] LABORATORY Blood STRUCTURE OF LEFT UPPER LIMB / Unknown Venipuncture / Unknown 06/25/2024 4:30 PM CDT 06/25/2024 4:38 PM CDT Umair Ruiz MD LAB - BLOOD ORDERABLES F inal Result [facility] Care Lab [address] Lab (1st floor, no room number) [place] [address] * Magnesium (06/25/2024 4:30 PM CDT) [facility] Magnesium 2.3 1.7 - 2.3 mg/dL 06/25/2024 5:04 PM CDT [facility] LABORATORY Blood BLOOD SPECIMEN / Unknown Venipuncture / Unknown 06/25/2024 4:30 PM CDT 06/25/2024 4:38 PM CDT Umair Ruiz MD LAB - BLOOD ORDERABLES F inal Result [facility] Lab [address] Lab (1st floor, no room number) [place] [phone] [place] [address] * D dimer quantitative (06/25/2024 4:30 PM CDT) [facility] D-Dimer Quantitative <0.27 0.00 - 0.50 ug/mL [...] LAB - BLOOD ORDERABLES F inal Result [facility] Lab [address] Lab (1st floor, no room number) [place] [phone] * Lipase (06/25/2024 4:30 PM CDT) Lipase 32 13 - 60 U/L 06/25/2024 5:04 PM CDT LABORATORY Blood BLOOD SPECIMEN / Unknown Venipuncture / Unknown 06/25/2024 4:30 PM CDT 06/25/2024 4:38 PM CDT Umair Ruiz MD LAB - BLOOD ORDERABLES F inal Result Performing Organization Address City/[facility]/ZIP Co de Phone Number [facility] [address] Lab (1st floor, no room number) [place] [phone] * (ABNORMAL) Comprehensive metabolic panel (06/25/2024 4:30 [...] - BLOOD ORDERABLES F inal Result LABORATORY [facility] Acute Care Lab [address] [facility] Lab (1st floor, no room number) [place] [address], [facility] * Troponin T, High Sensitivity (06/25/2024 4:30 PM CDT) [facility] Troponin T, High Sensitivity 10 <=14 ng/L [...] LAB - BLOOD ORDERABLES F inal Result [facility] [address] [facility] Lab (1st floor, no room number) [place] [address] * EKG 12-lead, tracing only (06/25/2024 3:57 PM CDT) Systolic Blood Pressure mmHg RADIOLOGY RESULTS Diastolic Blood Pressure mmHg RADIOLOGY RESULTS Ventricular Rate 49 BPM RAD IOLOGY RESULTS Atrial Rate 49 BPM RADIOLOG Y RESULTS MD Interval 116 ms RADIOLOG Y RESULTS QRS Duration 92 ms RADIOLO GY RESULTS QT 466 ms RADIOLOGY RESULTS QTc 420 ms RADIOLOGY RESULTS P [place] 78 degrees RADIOLOGY RESULTS R AXIS 100 degrees RADIOLOGY RESULTS T [place] 68 degrees RADIOLOGY RESULTS Interpretation ECG Sinus bradycardia Rightward axis Nonspecific ST and T wave abnormality Abnormal ECG When compared with ECG of 08-Aug-2016 09:13, Vent. rate has decreased by 27 bpm T wave inversion more evident in Anterior leads Confirmed by - EMERGENCY ROOM, PHYSICIAN ([id number]), editorial writer BALDO FLORES ([id number]) on 06/26/2024 7:04:39 AM RADIOLOGY RESULTS 06/25/2024 [...] RN) documented in this encounter Care Teams Mutual Fund Analyst Relationship Specialty Start Date End Date Diana Alcantar NP [place] [address] [place] [address] PCP - General 06/18/23 Juliana Churchill MD [address] [place] [address] Hematology 05/20/23 Juliana Churchill MD [address] [place] [address] Assigned Cancer Care Provider 06/30/23 Roosevelt Carrasco MD [address] [place] [address] [address] [place], [place] [address] Otolaryngology 07/20/23 documented as of this encounter
--- OUTSIDE RECORDS SUMMARY | 2024-06-30 08:40 | XMS_ITS | Encounter Summary ---
Author Organization [facility] Address [address], [place] [address] Care Team Providers Care Aquatics Director Name Role Phone Radha Quinteros DO Primary Care Provider [phone] Reason for Referral * Consult/Transfer Care (Routine) - New Request Specialty Diagnoses / Procedures Referred By Jen chu Referred To Contact Diagnoses Eye pain, right Obstruction of right tear duct Odalys Guidry PA-C [address] [place] [address] Phone: tel: fax: Referral ID Status Reason Start Date Expiration Date V isits Requested Visits Authorized [id number] New Request 06/30/2024 09/29/2025 1 1 Scheduling Instructions Your provider has recommended an appointment with [facility]. You may call [phone] for help scheduling your appointment. If your insurance has a separate vision plan, routine eye care may not be covered at [facility]. Please verify coverage with your medical insurance prior to your eye examination with us. If you discover you do not have coverage for routine eye care, please reach out to us to discuss your options. Question Answer Appointment Urgency? Within 2 Days (designee calls specialty to coordinate care) Reason for visit? right eye pain w/ clogged duct not infected Reason for Visit * Reason Comments EYE WATERING Encounter Details Date Type Department Care Team (Late st Contact Info) Description 06/30/2024 8:40 AM CDT Office Visit [facility] [place] [id number] [place] [phone] Odalys Guidry PA-C [address] [place] [address] Eye pain, right (Primary Dx); Tear duct infection, right Social History Tobacco Use Types Packs/Day Years Used Date Smoking Tobacco: Never Tobacco Cessation:Counseling Given: Not Answered Comments No Sex and Gender Information Value Date Recorded Sex Assigned at Not on file Legal Sex Female 5:07 AM CDT Gender Identity Not on file Sexual Orientation Not on file documented as of this encounter Last Filed Vital Signs Vital Sign Reading Time Taken Comments Blood Pressure 85/58 06/30/2024 8:32 AM CDT Pulse 65 06/30/2024 8:32 AM CDT Temperature 36.9 C (98.4 F) 06/30/2024 8:32 AM CDT Respiratory Rate 20 06/30/2024 8:32 AM CDT Oxygen Saturation 98% 06/30/2024 8:32 AM CDT Inhaled Oxygen Concentration - - Weight - - Height - - Body Mass Index - - documented in this encounter Patient Instructions * Patient Instructions* Odalys Guidry PA-C - 06/30/2024 8:40 AM CDT Images from the original note were not included. How can you care for you at home? Keep your eye clean. Moisten a clean cotton ball or washcloth with warm (not hot) water, and gently wipe from the inner (near the nose) to the outer part of the eye. With each wipe, use a new or clean part of the cotton ball or washcloth. If your eyelashes are crusty with mucus, clean them with a moist cotton ball using a gentle, downward motion. If the eyelids get stuck together, place a clean, warm, wet cotton ball over that eye fora few minutes to help loosen the crust. Always wash your hands before and after you touch the eye area. If your doctor suggests it, gently massage the area of the blockage. This can help prevent fluid buildup in the duct. Make sure that your hands are clean and your nails are short. If the doctor prescribed antibiotic pills, eyedrops, or ointment for your child, give them exactly as directed. Do not stop using them just because your eye gets better. You needs to take the full course of antibiotics. To put in eyedrops or ointment: Tilt your head back, and pull the lower eyelid down with one finger. Drop or squirt the medicine inside the lower lid. Do not touch the ointment or dropper tip to the eyelashes or any other surface. If the tearing bothers your child, try to limit their time in the wind, cold, and sunlight. When should you call for help? Call your doctor now or seek immediate medical care if: You has signs of infection, such as: Increased swelling and redness in or around the eye, eyelid, or nose. Pus draining from the eye. A fever. Watch closely for changes in your child's health, and be sure to contact your doctor if: The drainage from your child's eye gets worse. The tear duct does not open up by the time your child is 6 months old. Follow up with your eye doctor within 2 days. If your symptoms worsen or new symptoms develop please follow up sooner. If you develop severe eye pain, shortness of breath, chest pain, unable to eat or drink please go to the emergency department immediately or call 911 documented in this encounter Progress Notes * Odalys Guidry PA-C - 06/30/2024 8:40 AM CDT Images from the original note were not included. Madison Forde is a 28 y.o.female presents to the Urgent Care for EYE WATERING Known Injury: No Injury Occurred or Symptoms began: 1 week(s) ago and were sudden. Symptoms included: tearing, pain, itching to right eye/s. Eye Pain Scale: 7/10. Patient requests an excuse letter for work/school: No Went to PCP on Tuesday and was given pink eye drops, which seemed to help, but symptoms haven't gone away. Pt reports trying benadryl, mucinex, allergy medications, but none of these have helped. Pt reports that this has happened before and that steroid eye drops usually help SUBJECTIVE: Madison Forde is a 28 y.o. old female presents with right eye pain x 1 week. Associatedwith tearing and pain 7/10 and itching. Pt states she saw her pcp and was given abx drops for pink eye. Denies: vision loss, increase pain going from dark to light, contact lens wear, lightheadedness, dizziness, fevers Treatments: polytrim for 3 days with no relief All other ROS reviewed were negative Current Outpatient Medications Medication Sig Dispense Refill thyroid (ARMOUR THYROID) 60 MG tablet TAKE 1 TABLET BY MOUTH ON AN EMPTY STOMACH ORALLY ONCE A DAY 90 DAYS Oral for 90 Days No current facility-administered medications for this visit. Patient has no known allergies. OBJECTIVE: BP (!) 85/58 Pulse 65 Temp 98.4 ??F (36.9 ??C) (Oral) Resp 20 SpO2 98% Nursing noted and vitals reviewed General Appearance: Alert, cooperative, no distress, appears stated age, non- toxic appearing Head: Normocephalic, without obvious abnormality, atraumatic Eyes: Lacrimal caruncula right eye mild ttp, mild swelling, mild erythema, excessive tearing Left eye no periorbital swelling, no periorbital tenderness PERRL, conjunctiva/corneas clear, EOM's intact, both eyes Ears: Normal TM's and external ear canals, both ears Throat: Lips, mucosa, and tongue normal; teeth and gums normal Lungs: Clear to auscultation bilaterally, respirations unlabored Heart: Regular rate and rhythm, S1 and S2 normal, no murmur, rub or gallop ASSESSMENT: Encounter Diagnoses Name Primary? Eye pain, right Yes Tear duct infection, right PLAN: Madison was seen today for eye watering. Diagnoses and all orders for this visit: Eye pain, right - predniSONE (DELTASONE) 20 MG tablet; Take 2 Tablets (40 mg) by mouth daily for 5 days. - Eye Care Consult-Adult/Peds Tear duct infection, right - predniSONE (DELTASONE) 20 MG tablet; Take 2 Tablets (40 mg) by mouth daily for 5 days. - Eye Care Consult-Adult/Peds - amoxicillin-clavulanate (AUGMENTIN) 875-125 mg per tablet; Take 1 Tablet by mouth two times a day for 7 days. Take with food or milk. Discussed w/ pt possible tear duct infection of the right eye, recommend continuing w/ the abx polytrim drops from her pcp, will tx with oral abx given no improvement w/ the drops, given steroids have worked for pt in the past do not recommend steroid drops without a proper eye exam from her eye doctor, but can try a course of oral prednisone. Urgent referral to see an assistant health educator. Take tylenol or ibuprofen for pain. See PI for other recommendations for care at home, ED and return precautions. Discussed patient's hypo tension with patient. Patient states that is her norm and denies any lightheadedness, dizziness, weakness. Pt can f/u with her pcp if she should have any concerns or symptomsregarding her low blood pressure. Patient Instructions How can you care for you at home? Keep your eye clean. Moisten a clean cotton ball or washcloth with warm (not hot) water, and gently wipe from the inner (near the nose) to the outer part of the eye. With each wipe, use a new or clean part of the cotton ball or washcloth. If your eyelashes are crusty with mucus, clean them with a moist cotton ball using a gentle, downward motion. If the eyelids get stuck together, place a clean, warm, wet cotton ball over that eye fora few minutes to help loosen the crust. Always wash your hands before and after you touch the eye area. If your doctor suggests it, gently massage the area of the blockage. This can help prevent fluid buildup in the duct. Make sure that your hands are clean and your nails are short. If the doctor prescribed antibiotic pills, eyedrops, or ointment for your child, give them exactly as directed. Do not stop using them just because your eye gets better. You needs to take the full course of antibiotics. To put in eyedrops or ointment: Tilt your head back, and pull the lower eyelid down with one finger. Drop or squirt the medicine inside the lower lid. Do not touch the ointment or dropper tip to the eyelashes or any other surface. If the tearing bothers your child, try to limit their time in the wind, cold, and sunlight. When should you call for help? Call your doctor now or seek immediate medical care if: You has signs of infection, such as: Increased swelling and redness in or around the eye, eyelid, or nose. Pus draining from the eye. A fever. Watch closely for changes in your child's health, and be sure to contact your doctor if: The drainage from your child's eye gets worse. The tear duct does not open up by the time your child is 6 months old. Follow up with your eye doctor within 2 days. If your symptoms worsen or new symptoms develop please follow up sooner. If you develop severe eye pain, shortness of breath, chest pain, unable to eat or drink please go to the emergency department immediately or call 911 Follow-up/ED precautions: Patient will follow up with their primary care provider if symptoms persist, worsen or new symptomsdevelop. ED precautions given: if patient develops shortness of breath or difficulty breathing, chest pain, unable to eat or drink go to the emergency department immediately. Discharge: Patient understands and agrees with the plan and treatment. Patient will call if they have any questions or concerns. Went over printed AVS with detailed instructions given to the patient. Patient was discharged in stable condition and ambulated out of the urgent care. Odalys Guidry PA-C 06/30/2024, 9:06 AM This note was created using speech recognition software some parts of this note may contain some unintended word substitutions and grammar errors. documented in this encounter Nursing Notes * Edith Emerson MA - 06/30/2024 8:40 AM CDT Madison Forde is a 28 y.o.female presents to the Urgent Care for EYE WATERING Known Injury: No Injury Occurred or Symptoms began: 1 week(s) ago and were sudden. Symptoms included: tearing, pain, itching to right eye/s. Eye Pain Scale: 7/10. Patient requests an excuse letter for work/school: No Went to PCP on Tuesday and was given pink eye drops, which seemed to help, but symptoms haven't gone away. Pt reports trying benadryl, mucinex, allergy medications, but none of these have helped. Pt reports that this has happened before and that steroid eye drops usually help documented in this encounter Plan of Treatment Scheduled Referrals Name Type Priority Associated Diagnoses Orde r Schedule Eye Care Consult-Adult/Peds Referral Routine Eye pain, right Tear duct infection, right Ordered: 06/30/2024 documented as of this encounter Visit Diagnoses Diagnosis Eye pain, right- Primary Tear duct infection, right documented in this encounter Care Teams Aquatics Director Relationship Specialty Start Date End Date Radha Quinteros DO [address] [place] [address] PCP - General Urgent Care 11/23/17 documented as of this encounter
[2024-07-09] VITALS (8 sets, daily range): BP systolic 84–92; BP diastolic 54–70; PULSE 45–82; RESP 14–18; TEMP 37.6; O2SAT 96–100; BMI 10.9
--- OUTSIDE RECORDS SUMMARY | 2024-07-09 09:52 | XMS_ITS | Clinical Summary ---
Author Organization [place] Address [address] [place] [address] Care Team Providers Care Plastic Finisher Name Role Phone Juliana Churchill MD Unavailable [phone] Diana Alcantar NP Primary Care Provider [phone] Juliana Churchill MD Unavailable [phone] Roosevelt Carrasco MD Unavailable Allergies Active Allergy Reactions Criticality Noted Date Comments Dextrin Anaphylaxis High 03/10/2015 Even someone that drank something with corn could breath on her and cause anaphylaxis [place]-Containing Products Anaphylaxis High 02/28/2016 Milk Protein Anaphylaxis High 05/21/2017 Blue Dye #1 ([place] Blue) 03/18/2016 Red Dye #40 (Allura Red) [...] HOSPITAL CARE PLAN Approved by Geovanna Rosen MAINTENANCE TEAM LEADER and Kiarra HOLLIDAY June 24, 2016 Goals [...] monitored. Patient and mother will communicate to staffing clerk before food consumption. RN/NST will observe the [...] Care Team Description 06/28/2024 MyC Medical Advice [address] [place] [address] Juliana Churchill MD 06/25/2024 4:08 PM CDT - 06/25/2024 7:55 PM CDT Emergency [facility] Emergency Dept [address] [place] [address] Umair Ruiz MD Atypical chest pain; Hypokalemia; Nausea and vomiting, unspecified vomiting type Discharge Disposition: Home or Self Care 06/25/2024 Travel 06/14/2024 9:00 AM CDT Oncology Visit [facility] [address] [place] [address] Juliana Churchill MD Anemia in [...] on file Legal Sex Female 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 Pathologist [facility] Troponin T, High Sensitivity 8 <=14 ng/L [...] - BLOOD ORDERABLES F inal Result LABORATORY [facility] Acute Care Lab [address] Lab (1st floor, no room number) [place] [address], [facility] * Chest XR, PA & [...] CDT EXAM: XR CHEST 2 VIEWS LOCATION: [facility] DATE/TIME: 06/25/2024 5:32 PM CDT INDICATION: Chest pain. COMPARISON: None available. Procedure Note Paulie-Hoda Bean MD - 06/25/2024 EXAM: XR CHEST 2 VIEWS LOCATION: [facility] DATE/TIME: 06/25/2024 5:32 PM CDT INDICATION: [...] Tube (06/25/2024 4:30 PM CDT) Hold Specimen [facility] 06/25/2024 5:46 PM CDT LABORATORY Blood STRUCTURE OF LEFT UPPER LIMB / Unknown Venipuncture / Unknown 06/25/2024 4:30 PM CDT 06/25/2024 4:38 PM CDT Umair Ruiz MD LAB - BLOOD ORDERABLES F inal Result RH LABORATORY [facility] Acute Care Lab [address] Lab (1st floor, no room number) [place] [address], [facility] * (ABNORMAL) CBC with platelets [...] LAB - BLOOD ORDERABLES F inal Result [facility] Lab [address] [facility] Lab (1st floor, no room number) [place] [address] * Magnesium (06/25/2024 4:30 PM CDT) Pathologist [facility] Magnesium 2.3 1.7 - 2.3 mg/dL 06/25/2024 5:04 PM CDT LABORATORY Blood BLOOD SPECIMEN / Unknown Venipuncture / Unknown 06/25/2024 4:30 PM CDT 06/25/2024 4:38 PM CDT Umair Ruiz MD LAB - BLOOD ORDERABLES F inal Result [facility] Acute Care Lab [address] Lab (1st floor, no room number) [place] [address], [facility] * Lipase (06/25/2024 4:30 PM CDT) Pathologist [facility] Lipase 32 13 - 60 U/L 06/25/2024 5:04 PM CDT LABORATORY Blood BLOOD SPECIMEN / Unknown Venipuncture / Unknown 06/25/2024 4:30 PM CDT 06/25/2024 4:38 PM CDT Umair Ruiz MD LAB - BLOOD ORDERABLES F inal Result [facility] Care Lab [address] Lab (1st floor, no room number) [place] [address], [facility] * D dimer quantitative (06/25/2024 4:30 PM CDT) [facility] D-Dimer Quantitative <0.27 0.00 - 0.50 ug/mL [...] LAB - BLOOD ORDERABLES F inal Result [facility] Acute Care Lab [address] Lab (1st floor, no room number) [place] [address], [facility] * (ABNORMAL) Comprehensive metabolic panel (06/25/2024 4:30 PM CDT) [facility] Sodium 142 135 - 145 mmol/L 06/25/2024 [...] - BLOOD ORDERABLES F inal Result LABORATORY [facility] Acute Care Lab [address] Lab (1st floor, no room number) [place] [address] * EKG 12-lead, tracing only (06/25/2024 3:57 PM CDT) Systolic Blood Pressure mmHg RADIOLOGY RESULTS Diastolic Blood Pressure mmHg RADIOLOGY RESULTS Ventricular Rate 49 BPM RAD IOLOGY RESULTS Atrial Rate 49 BPM RADIOLOG Y RESULTS IA Interval 116 ms RADIOLOG Y RESULTS QRS Duration 92 ms RADIOLO GY RESULTS QT 466 ms RADIOLOGY RESULTS QTc 420 ms RADIOLOGY RESULTS P [place] 78 degrees RADIOLOGY RESULTS R AXIS 100 degrees RADIOLOGY RESULTS T [place] 68 degrees RADIOLOGY RESULTS Interpretation ECG Sinus bradycardia Rightward axis Nonspecific ST and T wave abnormality Abnormal ECG When compared with ECG of 08-Aug-2016 09:13, Vent. rate has decreased by 27 bpm T wave inversion more evident in Anterior leads Confirmed by - EMERGENCY ROOM, PHYSICIAN ([id number]), newspaper editor BALDO FLORES ([id number]) on 06/26/2024 7:04:39 AM RADIOLOGY RESULTS 06/25/2024 3:57 PM CDT 06/26/2024 7:04 AM CDT Umair Ruiz MD ECG ORDERABLES Edited R esult - Final RADIOLOGY RESULTS * Lab Result - HIM Scan (05/15/2024 12:00 AM CDT) 05/15/2024 Provider Outside NON-BEAKER LAB TESTING Final Result * (ABNORMAL) Thyroid Stimulating Hormone (TSH) (External Result) (05/17/2023 11:16 AM CDT) TSH (External) 5.51(A) 0.40 - 4.50 mIU/L [employer] Blood 05/17/2023 11:1 6 AM CDT Narrative [facility] - [facility] - 05/17/2023 11:16 AM [facility] - External Lab Results us Provider Outside LAB - HIM EXTERNAL RESULT Final Result [employer] [place], [place] [id number] [place] [address] * HIV Antigen Antibody Combo (03/02/2016 11:29 AM VISUALLY IMPAIRED TEACHER) HIV Antigen Antibody Combo Nonreactive HIV-1 p24 Ag & HIV-1/HIV-2 Ab Not Detected NR [facility] Blood specimen (specimen) 03/02/2016 11:29 AM VISUALLY IMPAIRED TEACHER 03/02/2016 11:59 AM VISUALLY IMPAIRED TEACHER Johanny Correa APRN AUTOMOBILE MECHANIC APPRENTICE LAB - BLOOD ORDERABLES Final Result Performing Organization Address City/[facility]/ZIP Co de Phone Number [address] [address] * Hepatitis C antibody (03/02/2016 11:29 AM VISUALLY IMPAIRED TEACHER) Hepatitis C Antibody Nonreactive Assay performance characteristics have not been established for newborns, infants, and children NR [facility] Blood specimen (specimen) 03/02/2016 11:29 AM VISUALLY IMPAIRED TEACHER 03/02/2016 11:59 AM VISUALLY IMPAIRED TEACHER Johanny Correa APRN AUTOMOBILE MECHANIC APPRENTICE LAB - BLOOD ORDERABLES Final Result Performing Organization Address City/[facility]/ZIP Co de Phone Number [address] [address] from Last 3 Months or Most Recently Relevant to Health Maintenance Insurance BCBS OUT OF STATE BCBS OUT OF STATE Advance Directives For more information, please contact: [phone] * Full Code (Latest Code Status on [...] 7:26 PM 07/07/2016 12:05 PM Care Teams Plastic Finisher Relationship Specialty Start Date End Date Diana Alcantar NP [place] [address] [place] [address] PCP - General 06/18/23 Juliana Churchill MD [address] [place] [address] Hematology 05/20/23 Juliana Churchill MD [address] [place] [address] Assigned Cancer Care Provider 06/30/23 Roosevelt Carrasco MD [address] [place] [address] [address] [place], [place] [address] Otolaryngology 07/20/23
--- OUTSIDE RECORDS SUMMARY | 2024-07-09 09:52 | XMS_ITS | Encounter Summary ---
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 Gender Identity Not on file Sexual Orientation Not on file documented as of this encounter Plan of Treatment Not on file documented as of this encounter Visit Diagnoses Not on filedocumented in this encounter Care Teams Factory Manager Relationship Specialty Start Date End Date Diana Alcantar NP [address] [address] PCP - General 06/18/23 Juliana Churchill [place] [address] [place] [address] Hematology 05/20/23 Juliana Churchill [place] [address] [place] [place] [address] Assigned Cancer Care Provider 06/30/23 Roosevelt Carrasco MD [address] [place] [address] [address] [place], [place] [address] Otolaryngology 07/20/23 documented as of this encounter
--- OUTSIDE RECORDS SUMMARY | 2024-07-09 09:52 | XMS_ITS | Encounter Summary ---
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 Gender Identity Not on file Sexual Orientation Not on file documented as of this encounter Plan of Treatment Not on file documented as of this encounter Visit Diagnoses Not on filedocumented in this encounter Care Teams Used Equipment Sales Representative Relationship Specialty Start Date End Date Diana Alcantar NP [address] [place] [address] PCP - General 06/18/23 Juliana Churchill MD [address] [place] [address] Hematology 05/20/23 Juliana Churchill MD [address] [place] [address] Assigned Cancer Care Provider 06/30/23 Roosevelt Carrasco MD [address] [place] [address] [address] [place], [place] [address] Otolaryngology 07/20/23 documented as of this encounter
--- OUTSIDE RECORDS SUMMARY | 2024-07-09 09:52 | XMS_ITS | Encounter Summary ---
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 Gender Identity Not on file Sexual Orientation Not on file documented as of this encounter Plan of Treatment Not on file documented as of this encounter Visit Diagnoses Not on filedocumented in this encounter Care Teams Type Photography Supervisor Relationship Specialty Start Date End Date Diana Alcantar NP [address] [place] [address] PCP - General 06/18/23 Juliana Churchill MD [address] [place] [address] Hematology 05/20/23 Juliana Churchill MD [address] [place] [address] Assigned Cancer Care Provider 06/30/23 Roosevelt Carrasco MD [address] [place] [address] [address] [place], [place] [address] Otolaryngology 07/20/23 documented as of this encounter
--- OUTSIDE RECORDS SUMMARY | 2024-07-09 09:52 | XMS_ITS | Encounter Summary ---
Author Organization [place] Address [address] [place] [address] Care Team Providers Care License And Permit Specialist Name Role Phone Juliana Churchill MD Unavailable [phone] Diana Alcantar NP Primary Care Provider Juliana Churchill MD Unavailable [phone] Roosevelt Carrasco MD Unavailable [phone] Encounter Details Date Type Department Care Team (Late st Contact Info) Description 06/28/2024 [facility] Medical Advice [facility] Tutor Key [address] 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 Gender Identity Not on file Sexual Orientation Not on file documented as of this encounter Plan of Treatment Not on file documented as of this encounter Visit Diagnoses Not on filedocumented in this encounter Care Teams License And Permit Specialist Relationship Specialty Start Date End Date Diana Alcantar SHOT POLISHER [place] [address] [place] [address] PCP - General 06/18/23 Juliana Churchill MD [address] [place] [address] [facility] 05/20/23 Juliana Churchill MD [address] [place] [address] Assigned Cancer Care Provider 06/30/23 Roosevelt Carrasoc MD [address] [place] [address] [address] [place] [address] Otolaryngology 07/20/23 documented as of this encounter
--- OUTSIDE RECORDS SUMMARY | 2024-07-09 09:52 | XMS_ITS | Encounter Summary ---
Author Organization [facility] Address [address], [place] [address] Care Team Providers Care Supervisor [facility] Name Role Phone Radha Quinteros DO Primary Care Provider [phone] Encounter Details Date Type Department Care Team (Late st Contact Info) Description 11/11/2017 Scanned History External to External, Provider No address [address] ADULT BUSINESS SPECIALIST DIAGNOSTIC ASSESS Social History Tobacco Use Types Packs/Day Years Used Date Smoking Tobacco: Never Smokeless Tobacco: Never Alcohol Use Standard Drinks/Week Comments No 0 (1 standard drink = 0.6 oz pur e alcohol) Comments Unknown Sex and Gender Information Value Date Recorded Sex Assigned at Not on file Legal Sex Female 5:07 AM CDT Gender Identity Not on file Sexual Orientation Not on file documented as of this encounter Plan of Treatment Not on file documented as of this encounter Visit Diagnoses Not on filedocumented in this encounter Care Teams Supervisor Char House Relationship Specialty Start Date End Date Radha Quinteros DO [address] [place] [address] [place] [address] PCP - General Urgent Care 11/23/17 documented as of this encounter
--- OUTSIDE RECORDS SUMMARY | 2024-07-09 09:53 | XMS_ITS | Patient Health Record ---
Author Organization [facility] Address [address] [place] [address] Care Team Providers Care Patient Account Liaison Name Role Phone Diana Alcantar Primary Care Provider UnavailKate [place] Unavailable [phone] Ruth Soares Unavailable [phone] Eul, Mikayla Unavailable [phone] Allergies No Known Allergies Results Component Value Reference Range Notes Testosterone, Total (IH) Reviewed date:06/14/2024 04:05:43 PM Interpretation: Performing Lab: Notes/Report: Access 2 ([id number]), [place] - [facility] PROLACTIN Reviewed date:06/09/2024 08:15:24 AM Interpretation: Performing Lab:[facility] [address], [id number] Miguel Dutton Notes/Report: 0; 0; 0; 0 PROLACTIN 8.5 Reference Range Females Non- 3.0-30.0 10.0-209.0 Postmenopausal 2.0-20.0 LH Reviewed date:06/09/2024 08:15:24 AM Interpretation: Performing Lab:[facility] [address], [id number] Miguel Dutton Notes/Report: 0; 0; 0; 0 LH <0.2 Reference Range Follicular Phase 1.9-12.5 Mid-Cycle Peak 8.7-76.3 Luteal Phase 0.5-16.9 Postmenopausal 10.0-54.7 FSH Reviewed date:06/09/2024 08:15:24 AM Interpretation: Performing Lab:[facility] [address], [id number] Miguel Dutton Notes/Report: 0; 0; 0; 0 FSH <0.7 Reference Range Follicular Phase 2.5-10.2 Mid-cycle Peak 3.1-17.7 Luteal Phase 1.5- 9.1 Postmenopausal 23.0-116.3 ESTRADIOL Reviewed date:06/09/2024 08:15:24 AM Interpretation: Performing Lab:[facility] [address] Miguel Dutton Notes/Report: 0; 0; 0; 0 ESTRADIOL <15 Reference Range Follicular Phase: 19-144 Mid-Cycle: 64-357 Luteal Phase: 56-214 Postmenopausal: < or = 31 Reference range established on post-pubertal patient population. No pre-pubertal reference range established using this assay. For any patients for whom low Estradiol levels are anticipated (e.g. males, pre-pubertal children and hypogonadal/post-menopausal females), the [facility] Estradiol, Ultrasensitive, LCMSMS assay is recommended (order code 08325). Please note: patients being treated with the drug fulvestrant (Faslodex(R)) have demonstrated significant interference in immunoassay methods for estradiol measurement. The cross reactivity could lead to falsely elevated estradiol test results leading to an inappropriate clinical assessment of estrogen status. [facility] order code [id number]-[id number], Ultrasensitive LC/MS/MS demonstrates negligible cross reactivity with fulvestrant. Reason For Referral Reason 4.9.25 Amenorrhea Sched 4.30 Diagnosis 1 Amenorrhea (N91.2) Referral Organization [facility] Referring Provider First Name Diana Referring Provider Last Name Ortiz Referring Provider Speciality Family Med icine Referred Organization [facility] Referred Provider Mikayla Roa Referred Address [address] [place], [place],[address], Referred Provider Specialty Elevator Operator Service and regional sales manager Referral Priority Routine Reason [facility] 06/15 Diagnosis 1 Amenorrhea, secondar y (N91.1) Diagnosis 2 Family planning (Z30 .09) Referral Organization [facility] Referring Provider First Name Mikayla Referring Provider Last Name Crispin Referring Provider Speciality Obstetrici an and regional sales manager Referred Provider Specialty Family plann ing doctor General Notes Mikayla Roa 025 09:48:11 AM CDT > Please send referral to [facility] for secondary amenorrhea, desires . Workup with our office in progress. 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 Problem Deficiency of macronutrients (disorder) (535387483) Malnutrition, unspecified type (E46) Active confirmed Vital Signs Blood pressure diastolic 48 mm Hg 06/13/2024 Height 65 in 06/13/2024 Blood pressure systolic 80 mm Hg 06/13/2024 Weight 70.4 lbs 06/13/2024 BMI 11.71 kg/m2 06/13/2024 Encounters Encounter Location Date Provider Diagnosis [facility] [address] [place] [address] 06/13/2024 Mikayla Eul Hypogonadotropic hypogonadism syndrome, female E23.0 ; Secondary amenorrhea N91.1 and Vaginal dryness N89.[address] [id number] 06/08/2024 Mikayla Eul Amenorrhea, secondar y N91.1 [facility] [address] [place] [address] 06/06/2024 Mikayla Eul Malnutrition, unspec ified type E46 ; Amenorrhea, secondary N91.1 and Mast cell activation syndrome D89.40 [facility] [address] [place] [address] 06/06/2024 Mikayla Eul Pelvic pain R10.[address] [id number] 06/14/2024 Mikayla Eul [facility] [address] [place] [address] 06/08/2024 Mikayla Eul [facility] [address] [place] [address] 06/29/2024 Mikayla Eul [facility] [address] [place] [address] 06/21/2024 Mikayla Eul [facility] [address] [place] [address] 06/21/2024 Mikayla Eul Assessments Encounter Date Diagnosis [...] would recommend she also establish with a hand meat salter to assist with maintaining the (and even [...] Of Treatment Next Appt Details Provider Name:Mikayla Millrewendy, 0 09/12/2024 02:00:00 PM, [address], [place], [address], Insurance Providers Payer Name Payer Address Payer Phone Subscriber Number Group Number Insured Name Patient Relationship to Insured Coverage Start Date Coverage End Date BCBS - (Client Bill) [address] [place] [phone] [id number] [place] Forde Self - patient is the insured Medical (General) History Medical History History ICD Code Anemia Amenorrhea Jaundice Hypothyoidism Surgical History Surgery Date(Month/Year) Tonsillectomy/Adenoid Removal 05/2008 Bone Infection 11/2017 Salvia Gland Removal 12/2023
--- OUTSIDE RECORDS SUMMARY | 2024-07-09 09:53 | XMS_ITS | Clinical Summary ---
Author Organization [facility] Address [address] [place] [address] Care Team Providers Care Nursing Information Systems Coordinator Name Role Phone Radha Quinteros DO Primary Care Provider [phone] Source Comments You are receiving this document as you are listed as the primary care provider,follow-up provider, or the patient has been referred to you for consultation.This is in compliance with the Medicare andMedicaid EHR Incentive Program,which states Providers who transition their patient to another setting of careor provider of care or refers their patient to another provider of care shouldprovide summary care record for each transition of care or referral. [facility] Allergies Active Allergy Reactions Criticality Noted Date Comments Latex Unknown 09/02/2017 Pineapple Hives 12/22/2013 PN: stomach pain, numb mouth Shellfish-Derived Products 9 Medications * This document contains information received from the source organization and may not represent a complete record from that organization. vitamin-ferrou s fumarate-folic acid (PRENATALRX) 60-1 MG tablet Take 1 Tablet by mouth daily with breakfast. 11/23/19 18 Active EPINEPHrine (EPIPEN) 0.3 MG/0.3ML injection Inject 0.3 mL intramuscularly once as needed. May repeat. Pharmacy may substitute any epinephrine pen of the same strength based on insurance 2 Each 11 10/16/20 18 Active ascorbic acid (VITAMINC) 500 MG tablet Take 1 Tablet by mouth daily. 11/23/19 Active cholecalcifero l (VITAMIN D3) 1000 units tablet Take 1 Tablet by mouth daily. 100 Tablet 3 11/25/19 Active cetirizine (ZYRTEC) 10 MG tablet Take 1 Tablet by mouth daily at bedtime. 01/31/20 Active lactase (LACTAID) 3000 units tablet Take 1-3 Tablets by mouth 4 times daily as needed for Other (lactose containing foods). 01/31/20 Active thyroid (ARMOUR THYROID) 60 MG tablet TAKE 1 TABLET BY MOUTH ON AN EMPTY STOMACH ORALLY ONCE A DAY 90 DAYS Oral for 90 Days Active predniSONE (DELTASONE) 20 MG tabletIndicati ons:Eye pain, right,Tear duct infection, right Take 2 Tablets (40 mg) by mouth daily for 5 days. 10 Tablet 07/01/19 25 025 amoxicillin-cl avulanate (AUGMENTIN) 875-125 mg per tabletIndicati ons:Tear duct infection, right Take 1 Tablet by mouth two times a day for 7 days. Take with food or milk. 14 Tablet 07/01/19 25 025 Active Problems Problem Noted Date Diagnosed Date Anorexia nervosa, restricting type 10/06/2017 Resolved Problems Problem Noted Date Diagnosed Date Resolved Date Severe protein-calorie malnutrition 11/30/2017 02/14/2018 DVT (deep venous thrombosis) 11/23/2017 12/20/2017 Slow transit constipation 11/23/2017 Osteomyelitis 11/23/2017 07/12/2018 Avoidant or restrictive food intake disorder 8 11/30/2017 Pressure sore 09/02/2017 07/12/2018 Encounter for wound care 09/02/201706/2018 Encounters * This document contains information received from the source organization and may not represent a complete record from that organization. Date Type Department Care Team Description 06/30/2024 8:40 AM CDT Office Visit [facility] [id number] [place] [address] Odalys Guidry PA-C Eye pain, right (Primary Dx); Tear duct infection, right from Last 3 Months Immunizations Immunization Administration Dates Next Due DTaP 08/22/2001, 8,03/15/1997,01/08/1997,03/1996 DTaP/Hib 12/13/1997 Flu Vac Preserv Free (3+yrs) 12/18/2002 HepA Ped/Adol (1-18 yrs) 04/11/2007,09/22/2006 HepB Ped/Adol (0-18 yrs) 06/04/1997,01/08/1997,1 Hib (HbOC) 12/13/1997,03/15/1997,01/08/1997 ,1996 IPV (Polio) 08/22/2001,12/13/1997,01/08/1997 ,1996 MCV4 (Menactra) 01/23/2009 MCV4 Menveo 2m.+ (two vial) 01/15/2014 MMR 08/22/2001,12/13/1997,12/13/1997 TDAP (ADACEL) 01/23/2009 Varicella 11/13/1999 Social History Tobacco Use Types Packs/Day Years Used Date Smoking Tobacco: Never Smokeless Tobacco: Never Tobacco Cessation:Counseling Given: Not Answered Alcohol Use Standard Drinks/Week Comments No 0 (1 standard drink = 0.6 oz pur e alcohol) Comments No Sex and Gender Information Value [...] CDT Inhaled Oxygen Concentration - - Weight 57.4 kg (126 lb 8.7 oz) 12/14/2018 2:52 P M TUBE BLOWER Height 165 cm (5' 4.96) 12/14/2018 2:52 PM TUBE BLOWER Body Mass Index 21.08 12/14/2018 2:52 PM TUBE BLOWER Plan of Treatment Health Maintenance Due Date Last Done Comments Cervical Cancer Screening Due 1996 Hep C Screening (Preventive Services) 1996 Varicella Vaccine (2 of 2 - 2-dose childhood series) 2000 11/13/1999 HIV Screening (Preventive Services) 2012 Adult Preventive Visit 2014 10/01/1998 DTaP/Tdap/Td Vaccine (7 - Tdap) 01/23/2019 01/23/2009, 08/22/2001, 12/13/1997, Additional history exists COVID-19 Vaccine ( season) 2023 Influenza Vaccine (Season Ended) 2024 12/18/2002 Zoster/Shingles Vaccine (1 of 2) 2046 HepB Vaccine Completed 06/04/1997, 03/1996, 1996 Hib Vaccine Completed 12/13/1997, 07/1997, 03/15/1997, Additional history exists IPV (Polio) Vaccine Completed 08/22/2001, 12/13/1997, 01/08/1997, Additional history exists HepA Vaccine Completed 04/11/2007, 09/22/2006 MCV4 Vaccine Completed 01/15/2014, 01/23/2009 HPV Vaccine Aged Out No longer eligi ble based on patient's age to complete this topic Meningococcal B Vaccine Aged Out No l onger eligible based on patient's age to complete this topic Pneumococcal Vaccine Aged Out No long er eligible based on patient's age to complete this topic Insurance BCBS OUT OF STATE [facility] OUT OF STATE Advance Directives * Full Code (Latest Code Status on File) Date Activated Date Inactivated Comments 01/10/2018 2:06 PM 01/30/2018 2:13 PM * Full Code Date Activated Date Inactivated Comments 12/19/2017 12:30 PM 12/19/2017 7:55 PM * Full Code Date Activated Date Inactivated Comments 12/13/2017 5:59 PM 12/19/2017 10:23 AM * Full Code Date Activated Date Inactivated Comments 12/04/2017 6:57 PM 12/13/2017 3:02 PM * Full Code Date Activated Date Inactivated Comments 11/30/2017 12:06 PM 12/04/2017 6:57 PM Care Teams Nursing Information Systems Coordinator Relationship Specialty Start Date End Date Radha Quinteros DO [address] [place] [address] PCP - General Urgent Care 11/23/17
--- NOTE | 2024-07-09 10:26 | ED.GENADULT ---
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 She has felt a little chest tightness. She states that she gets this recurrent nausea and vomiting seasonally, attributes this to seasonal activation of her mast cell disease. She states she recently saw GI and had her whole workup done, they did not find anything wrong. She does state that she had an EGD as part of this workup when I question her. She states she is getting treatment for her eating disorder through [facility]. She does not have abdominal pain, she has tried Zofran at home. Her potassium was low here on July 03, initially 2.5, then up to 2.7. She states she is taking oral supplement with some difficulty, not sure how much she is absorbing and is having ongoing vomiting. She is not feeling any palpitations or irregular heartbeat. Related Data Home Medications ?Medication ?Instructions ?Recorded ?Confirmed estradiol 0.1 mg/24 hr semiweekly 1 patch topical 2XW 07/03/24 07/09/24 transdermal patch furosemide 30 mg PO .PRN 07/03/24 07/09/24 levothyroxine 25 mcg tablet 25 mcg PO QAM 07/03/24 07/09/24 minoxidil-progesterone topical 07/03/24 ondansetron 4 mg disintegrating 4 mg PO Q6H PRN nausea/vomiting 07/03/24 07/09/24 tablet furosemide 20 mg tablet (Lasix) 30 mg PO .PRN 07/09/24 07/09/24 Previous Rx's ?Medication ?Instructions ?Recorded potassium chloride 20 mEq 20 meq PO DAILY #10 tabs 07/03/24 tablet,extended release Allergies Allergy/AdvReac Type Severity Reaction Status Date / Time corn Allergy Verified 07/09/24 10:00 Review of Systems Status of ROS: Reports: 6 or more systems reviewed and unremarkable except as noted in History and below PFSH PFSH Social History Smoking Status: Never smoker How often do you have a drink containing alcohol: never AUDIT-C Alcohol total score: 0 Non-prescribed substance use: denies use Exam Const: Vital Signs, click to edit/add: Vital Signs - 24 hr 07/09/24 10:05 07/09/24 10:58 07/09/24 11:15 Temperature 99.6 F Pulse Rate [Pulse Oximeter] 82 57 L Respiratory Rate 18 14 Blood Pressure [Ri ght Upper Arm] 84/54 L 87/57 L Pulse Oximetry 98 96 100 Oxygen Delivery Me thod Room Air Room Air 07/09/24 11:30 07/09/24 12:00 07/09/24 12:30 Temperature Pulse Rate [Pulse Oximeter] 49 L 45 L 49 L Respiratory Rate 14 14 14 Blood Pressure [Ri ght Upper Arm] 92/64 92/66 92/70 Pulse Oximetry 100 100 100 Oxygen Delivery Me thod 07/09/24 13:00 07/09/24 15:00 Temperature Pulse Rate [Pulse Oximeter] 45 L 61 Respiratory Rate 14 16 Blood Pressure [Ri ght Upper Arm] 88/59 L 91/65 Pulse Oximetry 100 100 Oxygen Delivery Me thod This 28-year-old female is alert, interactive, no apparent distress but is extremely cachectic and thin. Sclera clear, teeth have slight yellowish discoloration but overall looked to be intact. She has breathing easy on room air, speech is normal. Lungs are clear, good air entry, no wheezing crackles. CV regular rate and rhythm, no murmur, normal S1-S2. Abdomen is thin, soft, nontender, no organomegaly, no rebound or guarding, no distension. Documenting provider has reviewed patient's vital signs: yes Course Course ED Course: I do have significant concerns about this being attributed to patient's eating disorder, she assures me that she is getting treatment through her clinic. We will get a baseline EKG, recheck all of her labs and see where her levels are at. Will do portable chest x-ray, look at a venous blood gas and troponin as well. I think this patient's eating disorder is severe but is not clear at this time her final disposition. I do not feel she needs any imaging based on clinical exam, no acute abdominal pain. Reevaluation(s) Time of Reevaluation #1: 11:59 Reevaluation #1: Have reviewed with patient that her potassium is lower at 2.4. I have discussed with her that I admittedly am not an expert in eating disorders but looking at her clinical picture, have grave concerns about her eating disorder affecting her overall health. I personally believe that this is much beyond mast cell issues. She states she has an appointment with her supervisor heat treating at 4:30 a.m. today. She really does not want to go inpatient, wants to meet with this specialist at 4:30 a.m. today. She will discuss with the specialist whether not she needs inpatient treatment for her eating disorder. I have discussed with her that I really feel she needs hospitalization for repletion of her potassium. She would like to get as much potassium IV as she can here and then have his discharge her by 330-4 p.m. in time to get to her appointment this afternoon, will take her about 30 minutes to travel. I did offer contacting an outside institution for transfer where she could potentially see Psychiatry as a consult for her eating disorder. She would really like to proceed with obtaining is much IV potassium as she can here and then going to see her own specialist. As much as I would prefer her going inpatient at this time, she is of sound mind, does understand the consequences of untreated eating disorder and worsening eating disorder including her hypokalemia. She is seeking help to get the potassium rechecked and increased. From discussion with her, I do think she would consider inpatient treatment if that is the road her and her supervisor heat treating decide. Thus, will agree with her in her approach to management at this time. I do not think that this patient meets criteria to be placed on mental health hold at this time. Consultations Consultation #1: Did attempt to call patient's clinic, was on hold for about 5 minutes when another phone call came in and had answered here in the ED. was not able to contact anyone there. Time: 12:12 Vital Signs Vital signs: Initial Vital Signs Temperature 99.6 F 07/09/24 10:05 Temperature Source Temporal Artery Scan 07/09/24 10:05 Pulse Rate 82 07/09/24 10:05 Pulse Rhythm Regular 07/09/24 10:05 Respiratory Rate 18 07/09/24 10:05 Blood Pressure 84/54 L 07/09/24 10:05 Blood Pressure Mean 64 L 07/09/24 10:05 Blood Pressure Position Sitting 07/09/24 10:05 Pulse Oximetry 98 07/09/24 10:05 Oxygen Delivery Method Room Air 07/09/24 10:05 Vital Signs Temperature 99.6 F 07/09/24 10:05 Pulse Rate 82 07/09/24 10:05 Respiratory Rate 18 07/09/24 10:05 Blood Pressure 84/54 L 07/09/24 10:05 Pulse Oximetry 98 07/09/24 10:05 Oxygen Delivery Method Room Air 07/09/24 10:05 Temperature 99.6 F 07/09/24 10:05 Pulse Rate 61 07/09/24 15:00 Respiratory Rate 16 07/09/24 15:00 Blood Pressure 91/65 07/09/24 15:00 Pulse Oximetry 100 07/09/24 15:00 Oxygen Delivery Method Room Air 07/09/24 11:15 Medications Administered Medications: Discontinued Medications Generic Name Dose Route Start Last Admin Trade Name Freq PRN Reason Stop Dose Admin Sodium Chloride 1,000 mls @ 75 mls/hr 07/09/24 11:48 07/09/24 11:50 0.9 % Sodium Chloride 1000 Ml IV 75 mls/hr .[id number] JASON Administration Potassium Chloride 10 meq in 100 mls @ 100 mls/hr 07/09/24 12:00 07/09/24 14:34 Potassium Chloride IVPB 07/09/24 17:29 100 mls/hr Q90M JASON Administration Medical Decision Making Lab Data Labs: Lab Results 07/09/24 07/09/24 07/09/24 Range/Units 10:38 10:53 12:13 WBC 2.38 L (4.50-11.00) K/uL RBC 3.19 L (4.00-5.20) m/uL Hgb 10.8 L (12.0-16.0) gm/dL Hct 31.8 L (33.0-51.0) % MCV 100 (80-100) fL MCH 34 (26-34) pg MCHC 34 (32-36) gm/dL RDW Coeff of Adrian 13.1 (11.5-15.5) % Plt Count 272 (140-440) K/uL Neut % (Auto) 39.5 L (42.0-72.0) % Lymph % (Auto) 51.7 H (20-44) % Warrick % (Auto) 8.4 (0.0-11.0) % Eos % (Auto) 0.0 (0.0-7.0) % Baso % (Auto) 0.4 (0.0-3.0) % Neut # (Auto) 0.90 L (1.7-7.0) K/uL Lymph # (Auto) 1.20 (0.90-2.90) K/uL Warrick # (Auto) 0.20 (0.00-0.90) K/UL Eos # (Auto) 0.00 (0.00-0.50) K/uL Baso # (Auto) 0.00 (0.00-0.30) K/uL Abs Immat Gran (auto) 0.00 (0.00-0.30) K/uL Imm/Tot Granulo (auto) 0.0 % Diff Slide Review Acceptable Review (Acceptable) VBG pH 7.421 (7.32-7.43) VBG pCO2 43 (40-50) mmHG VBG pO2 30.8 (25-47) mmHG VBG HCO3 28 (21-28) mmol/L Sodium 133 L (135-149) mmol/L Potassium 2.4 L* (3.6-5.1) mmol/L Chloride 104 (96-114) mmol/L Carbon Dioxide 28 (20-32) mmol/L Anion Gap 1 L (7-15) mEq/L BUN 3 L (5-24) mg/dL Creatinine 1.0 (0.5-1.5) mg/dL Estimated Creat Clear 39.82 Estimated GFR 79 ml/min Glucose 77 (60-115) mg/dL Lactate 1.2 (0.5-1.9) mmol/L Calcium 7.9 L (8.4-10.6) mg/dL Phosphorus 3.1 (2.5-4.5) mg/dL Magnesium 2.6 (1.5-2.6) mg/dL Total Bilirubin 0.5 (0.1-1.5) mg/dL AST 28 (12-35) U/L ALT 23 (4-35) U/L Alkaline Phosphatase 51 (40-150) U/L Troponin I < 0.01 (0.01-0.04) ng/mL C-Reactive Protein < 0.5 L (0.5-1.0) mg/dL Total Protein 4.7 L (6.0-8.3) g/dL Albumin 2.7 L (3.3-5.0) g/dL TSH 2.570 (0.270-4.200) uIU/mL Lab Acknowledgement Test Added Test Added Imaging Data Chest x-ray: Attestation: I have reviewed the pertinent imaging results. My impression: I see no acute cardiopulmonary pathology on my preliminary review. ECG Data Attestation: I personally reviewed and interpreted this ECG as follows: (Sinus bradycardia, 50 beats per minute. No acute changes noted on this EKG.) Prior ECG tracings: available for review (Bradycardia at 46 beats per minute on prior recent visit EKG.) Discharge Plan Discharge Clinical Impression: Hypokalemia Patient Disposition: Home, Self-Care Condition: Stable Instructions: Potassium Content of Foods List (ED), Hypokalemia (ED) Additional Instructions: Your potassium is becoming critically low at 2.4 today. As we discussed while you are here, I highly encourage you to talk to your professional that you see regarding your eating disorder about inpatient treatment. Your potassium needs to be rechecked within the next few days and you do need to keep taking your oral potassium supplement. Please proceed directly to your appointment this afternoon with her supervisor heat treating at 4:30 p.m. as you stated. Lasix is absolutely contraindicated for you at this time, please do not take any of this if you have been. Lasix will further continue to decrease your potassium. Prescriptions: No Action minoxidil-progesterone topical furosemide [Lasix] 30 mg PO .PRN estradiol 0.1 mg/24 hr patch semiweekly 1 patch topical 2XW levothyroxine 25 mcg tablet 25 mcg PO QAM ondansetron 4 mg tablet,disintegrating 4 mg PO Q6H PRN (Reason: nausea/vomiting) potassium chloride 20 mEq tablet extended release 20 meq PO DAILY Qty: 10 0RF furosemide [Lasix] 20 mg tablet 30 mg PO .PRN Follow Up/Referrals: Diana Alcantar NP [Primary Care Provider, Family Practice] Stand Alone Forms: [employer] Info Instructions
--- NOTE | 2024-07-09 10:41 | CRLHL7_ITS ---
For Patients: As a result of the Cures Act, medical imaging exams and procedure reports are released immediately into your electronic medical record. You may view this report before your referring provider. If you have questions, please contact your health care provider. INDICATION: : COMPARISON: None TECHNIQUE: One view(s) of the chest FINDINGS: The cardiomediastinal silhouette and pulmonary vasculature are unremarkable. There is no focal airspace consolidation, pleural effusion, or pneumothorax. No displaced fractures. Slight levoscoliotic curvature of the thoracic spine. IMPRESSION: No acute cardiopulmonary process. Dictated by Jaime Hylton MD @ 07/09/2024 12:12:04 PM (Electronically Signed)
[2024-07-09 10:59] LABS: HCO3 VBG 28 mmol/L (21-28); Lactate* 1.2 mmol/L (0.5-1.9); PCO2 VBG 43 mmHG (40-50); PO2 VBG 30.8 mmHG (25-47); pH VBG 7.421 (7.32-7.43)
[2024-07-09 11:05] LABS: Basophils Percent Auto 0.4 % (0.0-3.0); Hematocrit 31.8 % (33.0-51.0); Hemoglobin* 10.8 gm/dL (12.0-16.0); Lymphocytes Percent Auto 51.7 % (20-44); Mean Corpuscular HGB Conc 34 gm/dL (32-36); Mean Corpuscular Hemoglobin 34 pg (26-34); Mean Corpuscular Volume 100 fL (80-100); Monocytes Percent Auto 8.4 % (0.0-11.0); Neutrophils Percent Auto 39.5 % (42.0-72.0); Platelet Count* 272 K/uL (140-440); RDW Coefficient of Variation % 13.1 % (11.5-15.5); Red Blood Count 3.19 m/uL (4.00-5.20); White Blood Count* 2.38 K/uL (4.50-11.00)
[2024-07-09 11:17] LABS: Slide Review Reflex Yes
[2024-07-09 11:25] LABS: Albumin* 2.7 g/dL (3.3-5.0); Chloride* 104 mmol/L (96-114); Sodium* 133 mmol/L (135-149)
[2024-07-09 11:28] LABS: Alanine Aminotransferase* 23 U/L (4-35); Anion Gap 1 mEq/L (7-15); Aspartate Amino Transferase* 28 U/L (12-35); Blood Urea Nitrogen* 3 mg/dL (5-24); Carbon Dioxide* 28 mmol/L (20-32); Est. Creatinine Clearance* 39.82; Estimated Glomerular Filt Rate 79 ml/min
[2024-07-09 11:29] LABS: Alkaline Phosphatase* 51 U/L (40-150); Bilirubin Total* 0.5 mg/dL (0.1-1.5); Calcium* 7.9 mg/dL (8.4-10.6); Glucose* 77 mg/dL (60-115); Magnesium* 2.6 mg/dL (1.5-2.6); Phosphorus* 3.1 mg/dL (2.5-4.5); Total Protein* 4.7 g/dL (6.0-8.3)
[2024-07-09 11:33] LABS: C Reactive Protein* < 0.5 mg/dL (0.5-1.0); Potassium* 2.4 mmol/L (3.6-5.1)
[2024-07-09 11:39] LABS: Slide Review Acceptable Review (Acceptable)
[2024-07-09 11:42] LABS: Troponin I* < 0.01 ng/mL (0.01-0.04)
[2024-07-09] MEDS: 0.9 % SODIUM CHLORIDE 1000 ml 1,000 ML 75 ML IV (11:50)
[2024-07-09] MEDS: POTASSIUM CHLORIDE 10 MEQ/100 ML PIGGYBACK 100 MEQ IVPB ×3 (11:55→14:34)
== END 2024-07-09 15:30 | disposition home or self-care (01) ==
PROVIDERS: Emergency Provider Family Medicine; PCP Nurse Practitioner Family
DX: E87.6 Hypokalemia (principal); R11.2 Nausea with vomiting, unspecified; R00.1 Bradycardia, unspecified; R53.83 Other fatigue; R07.89 Other chest pain; R63.0 Anorexia
CPT/HCPCS: 36415; 71045; 80050; 80053; 82803; 83605; 83735; 84100; 84443; 84484; 85025; 86140; 93005; 94761; 96365; 96366; 99284; 99285; J3480; J7030